=== PATIENT | female | born 1965 | race Caucasian/White ===

== ENCOUNTER 2021-05-03 15:19 | Outpatient (CLI) | payer MEDICARE, MEDICAID, SELFPAY ==
[2021-05-03 15:35] LABS: Basophils Percent Auto 0.4 % (0.2-1.2); Eosinophils Absolute Auto 0.1 K/mm3 (0-0.3); Hematocrit 47.8 % (37.0-47.0); Immature Granulocyte Absolute 0.02 K/mm3 (0.00-0.031); Immature Granulocyte Percent A 0.2 % (0-0.5); Immature Platelet Fraction Pct 3.8 % (0.9-11.2); Lymphocytes Absolute Auto 3.79 K/mm3 (0.9-3.2); Lymphocytes Percent Auto 47.1 % (18.3-44.2); Mean Corpuscular HGB Conc 33.5 g/dl (32-36); Mean Corpuscular Hemoglobin 31.3 pg (26-34); Mean Corpuscular Volume 93.5 fl (80-100); Monocytes Absolute Auto 0.4 K/mm3 (0.1-0.6); Neutrophils Absolute Auto 3.7 K/mm3 (1.3-6.7); Neutrophils Percent Auto 46.3 % (45.5-73.1); Platelet Count Result 70 k/mm3 (150-375); Red Blood Count 5.11 M/mm3 (4.2-5.4); Red Cell Distribution Width 11.8 % (11.5-14.5); White Blood Count 8.1 K/mm3 (4.5-10.0)
[2021-05-03 15:36] LABS: Blood Urea Nitrogen 7 mg/dL (8-26); Carbon Dioxide 27 mmol/L (22-30); Chloride 103 mmol/L (98-109); Estimated Glomerular Filt Rate > 60; Glucose 112 mg/dL (70-105); Potassium 3.9 mmol/L (3.5-4.9); Sodium 142 mmol/L (138-146)
[2021-05-03 16:22] LABS: Alanine Aminotransferase 25 U/L (4-35); Alkaline Phosphatase 83 U/L (38-126); Anion Gap 11 mmol/L (8-16); Aspartate Amino Transferase 38 U/L (14-36); Bilirubin,Total 0.3 mg/dL (0.2-1.3); Blood Urea Nitrogen 8 mg/dL (7-17); Calcium 9.8 mg/dL (8.4-10.2); Carbon Dioxide 26 mmol/L (22-30); Chloride 104 mmol/L (98-107); Estimated Glomerular Filt Rate > 60; Glucose 119 mg/dL (65-110); Sodium 141 mmol/L (137-145)
== END 2021-05-03 15:20 | disposition home or self-care (01) ==
LOC: ANHLAB 15:21
PROVIDERS: Visit Provider Internal Medicine Hematology & Oncology
DX: D69.59 Other secondary thrombocytopenia (principal)
CPT/HCPCS: 36415; 80053; 85025; 85055

== ENCOUNTER 2021-05-31 10:41 | Outpatient (CLI) | payer MEDICARE, MEDICAID, SELFPAY ==
--- NOTE | ~2021-05-31 | MR_ITS ---
EXAMINATION: MR lumbar spine wo con DATE: 05/31/2021 11:24 INDICATION: Lumbar radiculopathy. TECHNIQUE: Magnetic resonance imaging (MRI) of the lumbar spine was performed without intravenous con trast. Sequences included sagittal T2-weighted FSE, sagittal T2-weighted FS FSE, sagittal T1-weighted FSE, and axial T2-weighted FSE. COMPARISON: None FINDINGS: There is 6 degrees dextrocurvature of thoracolumbar spine. Vertebral body heights and inter vertebral disc heights are normal. The distal spinal cord signal intensity is normal. The conus medul fidencio is at L1. The following disc levels are specifically discussed: L1-L2: The disc does not extend beyond the endplate margin. There is mild bilateral facet joint osteo arthritis. There is no neural foraminal stenosis. There is no central canal stenosis. L2-L3: There is a left foraminal protrusion. There is mild bilateral facet joint osteoarthritis. Ther e is mild left neural foraminal stenosis. There is no central canal stenosis. L3-L4: The disc does not extend beyond the endplate margin. There is severe bilateral facet joint ost eoarthritis. There is mild left neural foraminal stenosis. There is no central canal stenosis. L4-L5: The disc does not extend beyond the endplate margin. There is severe bilateral facet joint ost eoarthritis. There is mild right neural foraminal stenosis. There is no central canal stenosis. L5-S1: The disc does not extend beyond the endplate margin. There is severe bilateral facet joint ost eoarthritis. There is mild bilateral neural foraminal stenosis. There is no central canal stenosis. IMPRESSION: 1. Mild lumbar spondylosis. Reviewed, dictated and finalized at location A. IMPRESSION: 1. Mild lumbar spondylosis.
== END 2021-05-31 10:42 | disposition home or self-care (01) ==
PROVIDERS: Visit Provider Physical Medicine & Rehabilitation Pain Medicine
DX: M47.27 Other spondylosis with radiculopathy, lumbosacral region (principal); M48.07 Spinal stenosis, lumbosacral region
CPT/HCPCS: 72148

== ENCOUNTER 2022-12-23 12:46 | Outpatient (CLI) | payer MEDICARE, MEDICAID, SELFPAY ==
[2022-12-23 13:11] LABS: Hematocrit 38.2 % (37.0-47.0); Hemoglobin 13.3 g/dL (12.0-15.0); Immature Platelet Fraction Pct 4.7 % (0.9-11.2); Mean Corpuscular HGB Conc 34.8 g/dl (32-36); Mean Corpuscular Hemoglobin 35.1 pg (26-34); Mean Corpuscular Volume 100.8 fl (80-100); Mean Platelet Volume 9.6 fl (7.4-10.4); Platelet Count Result 16 k/mm3 (150-375); Red Blood Count 3.79 M/mm3 (4.2-5.4); Red Cell Distribution Width 13.3 % (11.5-14.5); White Blood Count 5.1 K/mm3 (4.5-10.0)
[2022-12-28 22:51] LABS: Platelet Antibody, Direct NEGATIVE (NEGATIVE)
== END 2022-12-23 12:47 | disposition home or self-care (01) ==
LOC: ANHLAB 12:53
PROVIDERS: Visit Provider Internal Medicine Hematology & Oncology
DX: D69.59 Other secondary thrombocytopenia (principal)
CPT/HCPCS: 36415; 85027; 85055; 86023

== ENCOUNTER 2023-01-03 10:55 | Outpatient (CLI) | payer MEDICARE, MEDICAID, SELFPAY ==
[2023-01-03 11:23] LABS: Hematocrit 41.7 % (37.0-47.0); Immature Platelet Fraction Pct 4.4 % (0.9-11.2); Mean Corpuscular HGB Conc 33.6 g/dl (32-36); Mean Corpuscular Hemoglobin 34.7 pg (26-34); Mean Corpuscular Volume 103.2 fl (80-100); Mean Platelet Volume 11.1 fl (7.4-10.4); Red Blood Count 4.04 M/mm3 (4.2-5.4); Red Cell Distribution Width 13.7 % (11.5-14.5); White Blood Count 9.1 K/mm3 (4.5-10.0)
[2023-01-03 11:31] LABS: Platelet Count Result 23 k/mm3 (150-375)
== END 2023-01-03 10:56 | disposition home or self-care (01) ==
LOC: ANHLAB 10:57
PROVIDERS: Visit Provider Internal Medicine Hematology & Oncology
DX: D69.59 Other secondary thrombocytopenia (principal)
CPT/HCPCS: 36415; 85027; 85055

== ENCOUNTER 2023-01-10 12:53 | Outpatient (CLI) | payer MEDICARE, MEDICAID, SELFPAY ==
[2023-01-10 13:19] LABS: Hematocrit 38.2 % (37.0-47.0); Immature Platelet Fraction Pct 3.1 % (0.9-11.2); Mean Corpuscular Hemoglobin 35.2 pg (26-34); Mean Corpuscular Volume 103.5 fl (80-100); Mean Platelet Volume 9.7 fl (7.4-10.4); Platelet Count Result 49 k/mm3 (150-375); Red Blood Count 3.69 M/mm3 (4.2-5.4); White Blood Count 4.5 K/mm3 (4.5-10.0)
== END 2023-01-10 12:54 | disposition home or self-care (01) ==
LOC: ANHLAB 12:57
PROVIDERS: Visit Provider Internal Medicine Hematology & Oncology
DX: D69.59 Other secondary thrombocytopenia (principal)
CPT/HCPCS: 36415; 85027; 85055

== ENCOUNTER 2023-01-27 11:36 | Outpatient (CLI) | payer MEDICARE, MEDICAID, SELFPAY ==
[2023-01-27 11:48] LABS: Hematocrit 38.1 % (37.0-47.0); Hemoglobin 12.9 g/dL (12.0-15.0); Mean Corpuscular HGB Conc 33.9 g/dl (32-36); Mean Corpuscular Hemoglobin 34.6 pg (26-34); Mean Corpuscular Volume 102.1 fl (80-100); Mean Platelet Volume 9.1 fl (7.4-10.4); Platelet Count Result 96 k/mm3 (150-375); Red Blood Count 3.73 M/mm3 (4.2-5.4); Red Cell Distribution Width 12.3 % (11.5-14.5); White Blood Count 6.1 K/mm3 (4.5-10.0)
== END 2023-01-27 11:37 | disposition home or self-care (01) ==
PROVIDERS: Visit Provider Internal Medicine Hematology & Oncology
DX: D69.59 Other secondary thrombocytopenia (principal)
CPT/HCPCS: 36415; 85027

== ENCOUNTER 2023-02-01 01:06 | Day surgery (SDC) | payer MEDICARE, MEDICAID, SELFPAY ==
[2023-01-31 14:05] VITALS: BMI 36.5
[2023-02-01] VITALS (7 sets, daily range): BP systolic 113–139; BP diastolic 72–80; PULSE 79–108; RESP 18; TEMP 36.8; O2SAT 96–99; BMI 36.3
--- NOTE | ~2023-02-01 | BM_ITS ---
EXAMINATION: CCL bone marrow asp w bx diag DATE: 02/01/2023 10:20 INDICATION: Thrombocytopenia. TECHNIQUE: A time-out was performed to verify the patient's name, date of , and procedure to b e performed. The procedure including the risks, benefits, and alternatives was discussed with the pat ient. Risks discussed included bleeding and infection. The patient understood the risks and agreed to proceed. The skin overlying the left ilium was prepped and draped in usual sterile fashion. Anesth etic was administered with 1% lidocaine subcutaneously. Moderate sedation was achieved with 1 mg Vers ed IV and 50 mg fentanyl IV. An 11 gauge needle was inserted into the ilium with fluoroscopic guidan ce. Bone marrow was aspirated. An 8 gauge needle was then inserted into the ilium with fluoroscopic g uidance. A core bone marrow biopsy was obtained. There were no immediate complications. Fluoroscopy e xposure time was 0.0 minutes. The total number of images was 10. FINDINGS: Real-time fluoroscopy demonstrates a marker overlying the left posterior superior iliac spi ne. IMPRESSION: 1. Fluoro-guided bone marrow aspiration. 2. Fluoro-guided bone marrow core biopsy. Reviewed, dictated and finalized at location A. TRIAGE
[2023-02-01 07:56] LABS: Hematocrit 41.8 % (37.0-47.0); Hemoglobin 14.2 g/dL (12.0-15.0); Mean Corpuscular Hemoglobin 34.2 pg (26-34); Mean Corpuscular Volume 100.7 fl (80-100); Mean Platelet Volume 9.8 fl (7.4-10.4); Platelet Count Result 79 k/mm3 (150-375); Red Blood Count 4.15 M/mm3 (4.2-5.4); Red Cell Distribution Width 12.4 % (11.5-14.5); White Blood Count 5.2 K/mm3 (4.5-10.0)
[2023-02-01 08:05] LABS: INR 0.9; Prothrombin Time 12.3 Seconds (11.1-14.7)
[2023-02-01 08:13] LABS: Band Neutrophils Percent 8 % (0-6); Neutrophils Absolute Manual 3.53 K/mm3 (1.7-7.2); Neutrophils Percent Manual 60 % (46-73); Total Cells Counted 100
[2023-02-01 08:14] LABS: Eosinophils Absolute Manual 0.05 K/mm3 (0.02-0.5); Eosinophils Percent Manual 1 % (0-4); Lymphocytes Absolute Manual 1.19 K/mm3 (1.1-4.5); Lymphocytes Percent Manual 23 % (18-44); Monocytes Absolute Manual 0.41 K/mm3 (0.1-0.90); Monocytes Percent Manual 8 % (3-9); Platelet Estimate Decreased (Adequate)
[2023-02-01 08:15] LABS: Hypochromasia 1+ (NORMAL); Poikilocytosis 1+ (NORMAL); Schistocytes None Seen (NORMAL)
--- NOTE | 2023-02-01 08:57 | WPDMODSED ---
Moderate Sedation Note-Pt Data Patient Data Diagnosis: Thrombocytopenia. Present Complaint: Thrombocytopenia. Procedure to be performed/Plan: Fluoro-guided bone marrow biopsy of ilium. Allergies Allergy/AdvReac Type Severity Reaction Status Date / Time atorvastatin Allergy Unknown Rash Verified 01/31/23 13:43 ibuprofen Allergy Unknown unknown Verified 01/31/23 13:43 Home Medications Medication Instructions Recorded Confirmed Type multivitamin (Daily Multi-Vitamin 1 tablet PO DAILY 07/16/20 02/01/23 History tablet) blood sugar diagnostic (StaaffTouch #100 ea 11/11/20 01/18/21 Rx Ultra Test strips) blood-glucose meter (StaaffTouch #1 ea 11/11/20 01/18/21 Rx Ultra2 Meter kit) lancets ([employer] UltraSoft #100 ea 11/11/20 01/18/21 Rx Lancets) albuterol sulfate 90 mcg/actuation 2 puff inhalation Q6H PRN 01/31/23 01/31/23 History aerosol inhaler Shortness Of Breath Or Wheezing ascorbic acid (vitamin C) 500 mg 500 mg PO DAILY 01/31/23 02/01/23 History tablet bacitracin 500 unit/gram topical 1 applic topical TID PRN Pain 01/31/23 01/31/23 History ointment cholecalciferol (vitamin D3) 125 125 mcg PO DAILY 01/31/23 02/01/23 History mcg (5,000 unit) tablet (Vitamin D3) cyanocobalamin (vitamin B-12) 500 1,000 mcg PO DAILY 01/31/23 02/01/23 History mcg tablet cyclobenzaprine 5 mg tablet 5 mg PO DAILY PRN Pain 01/31/23 01/31/23 History diclofenac sodium 1 % topical gel 1 ea topical BID PRN Pain 01/31/23 01/31/23 History (Voltaren Arthritis Pain) diclofenac sodium 100 mg 100 mg PO DAILY PRN Pain 01/31/23 01/31/23 History tablet,extended release 24 hr ferrous sulfate 27 mg iron tablet 27 mg PO DAILY 01/31/23 02/01/23 History fluticasone propionate 50 1 spray intranasal DAILY PRN 01/31/23 02/01/23 History mcg/actuation nasal Congestion spray,suspension (Allergy Relief (fluticasone)) folic acid 1 mg tablet 1 mg PO DAILY 01/31/23 02/01/23 History hydrocodone 5 mg-acetaminophen 325 1 tablet PO Q4H PRN Pain 01/31/23 01/31/23 History mg tablet krill oil-hyaluronic 1 cap PO DAILY 01/31/23 02/01/23 History acid-astaxanthin 353 mg capsule lidocaine 5 % topical ointment 1 applic topical DAILY 01/31/23 02/01/23 History omeprazole 20 mg capsule,delayed 20 mg PO DAILY 01/31/23 02/01/23 History release ondansetron HCl 4 mg tablet 4 mg PO Q8H PRN Nausea 01/31/23 02/01/23 History phentermine 11.25 mg-topiramate ER 1 cap PO DAILY 01/31/23 01/31/23 History 69 mg capsule,ext.[id number] mphas semaglutide 0.25 mg or 0.5 mg (2 2 mg subcut WEEKLY 01/31/23 01/31/23 History mg/3 mL) subcutaneous pen injector (Ozempic) simvastatin 20 mg tablet 20 mg PO DAILY 01/31/23 01/31/23 History Sedation/Anesthesia: No previous sedation/anesthesia problems (including family history). [facility] Past Medical History Medical History Arthritis Right knee DJD Family History Family History Other Cerebrovascular accident Depression Diabetes mellitus Family history of arthritis Family history of blood dyscrasia Family history of cardiovascular disease Family history of mental disorder Social History Social History Smoking packs per day: 1 Smoking cigarettes per day: 20.0 Smoking status: Current every day smoker Tobacco type: cigarettes Additional smoking assessment comments: 16 cigarettes per day Alcohol intake: current Drinks per week: 30 Substance use: never Substance use type: does not use Living arrangements: alone Occupation/Education: unemployed Gender identity (if verbalized by the patient): Female Spiritual care concerns: No Mod Sed Physical Exam Physical Exam Pre Procedural Exam: Normal: Lungs, Heart Rate and Heart Rhythm and Variation: Appearance (Obese) and Abdomen (Mild left ab
== END 2023-02-01 10:47 | disposition home or self-care (01) ==
PROVIDERS: PCP Family Medicine; Referring Provider Internal Medicine Hematology & Oncology; Visit Provider Radiology Diagnostic Radiology
DX: D69.6 Thrombocytopenia, unspecified (principal); Z79.51 Long term (current) use of inhaled steroids; Z79.85 Long-term (current) use of injectable non-insulin antidiabetic drugs; F17.210 Nicotine dependence, cigarettes, uncomplicated
CPT/HCPCS: 36415; 38222; 85025; 85055; 85610; 88184; 88185; 88305; 88311; 88313; 88342; 88364; 88365; J1642; J2250; J3010; J7040

== ENCOUNTER 2023-05-09 10:06 | Outpatient (CLI) | payer MEDICARE, MEDICAID, SELFPAY ==
[2023-05-09 10:39] LABS: Basophils Percent Auto 0.6 % (0.2-1.2); Eosinophils Absolute Auto 0.3 K/mm3 (0-0.3); Eosinophils Percent Auto 5.6 % (0-4.4); Hematocrit 40.1 % (37.0-47.0); Hemoglobin 13.7 g/dL (12.0-15.0); Immature Granulocyte Absolute 0.01 K/mm3 (0.00-0.031); Immature Granulocyte Percent A 0.2 % (0-0.5); Immature Platelet Fraction Pct 3.3 % (0.9-11.2); Lymphocytes Absolute Auto 2.26 K/mm3 (0.9-3.2); Mean Corpuscular HGB Conc 34.2 g/dl (32-36); Mean Corpuscular Hemoglobin 34.8 pg (26-34); Mean Corpuscular Volume 101.8 fl (80-100); Mean Platelet Volume 10.3 fl (7.4-10.4); Monocytes Absolute Auto 0.4 K/mm3 (0.1-0.6); Monocytes Percent Auto 7.8 % (2.6-8.5); Neutrophils Absolute Auto 2.2 K/mm3 (1.3-6.7); Neutrophils Percent Auto 41.8 % (45.5-73.1); Red Blood Count 3.94 M/mm3 (4.2-5.4); Red Cell Distribution Width 13.8 % (11.5-14.5); White Blood Count 5.1 K/mm3 (4.5-10.0)
[2023-05-09 11:14] LABS: Platelet Count Result 22 k/mm3 (150-375)
== END 2023-05-09 10:07 | disposition home or self-care (01) ==
LOC: ANHLAB 10:09
PROVIDERS: PCP Nurse Practitioner Family; Visit Provider Internal Medicine Hematology & Oncology
DX: D69.59 Other secondary thrombocytopenia (principal)
CPT/HCPCS: 36415; 85025; 85055

== ENCOUNTER 2023-06-12 10:24 | Outpatient (CLI) | payer MEDICARE, MEDICAID, SELFPAY ==
[2023-06-12 10:39] LABS: Basophils Absolute Auto 0.1 K/mm3 (0.0-0.1); Eosinophils Absolute Auto 0.4 K/mm3 (0-0.3); Eosinophils Percent Auto 7.8 % (0-4.4); Hematocrit 40.8 % (37.0-47.0); Immature Granulocyte Absolute 0.01 K/mm3 (0.00-0.031); Immature Granulocyte Percent A 0.2 % (0-0.5); Lymphocytes Absolute Auto 1.93 K/mm3 (0.9-3.2); Lymphocytes Percent Auto 39.5 % (18.3-44.2); Mean Corpuscular HGB Conc 34.3 g/dl (32-36); Mean Platelet Volume 9.4 fl (7.4-10.4); Monocytes Absolute Auto 0.4 K/mm3 (0.1-0.6); Monocytes Percent Auto 8.4 % (2.6-8.5); Neutrophils Absolute Auto 2.1 K/mm3 (1.3-6.7); Neutrophils Percent Auto 43.1 % (45.5-73.1); Platelet Count Result 179 k/mm3 (150-375); Red Cell Distribution Width 12.9 % (11.5-14.5); White Blood Count 4.9 K/mm3 (4.5-10.0)
== END 2023-06-12 10:25 | disposition home or self-care (01) ==
LOC: ANHLAB 10:26
PROVIDERS: PCP Nurse Practitioner Family; Visit Provider Internal Medicine Hematology & Oncology
DX: D69.59 Other secondary thrombocytopenia (principal)
CPT/HCPCS: 36415; 85025

== ENCOUNTER 2023-07-14 11:34 | Outpatient (CLI) | payer MEDICARE, MEDICAID, SELFPAY ==
[2023-07-14 11:46] LABS: Basophils Percent Auto 0.5 % (0.2-1.2); Eosinophils Absolute Auto 0.2 K/mm3 (0-0.3); Eosinophils Percent Auto 3.9 % (0-4.4); Hematocrit 39.8 % (37.0-47.0); Hemoglobin 13.2 g/dL (12.0-15.0); Immature Granulocyte Absolute 0.01 K/mm3 (0.00-0.031); Immature Granulocyte Percent A 0.2 % (0-0.5); Lymphocytes Absolute Auto 1.72 K/mm3 (0.9-3.2); Mean Corpuscular HGB Conc 33.2 g/dl (32-36); Mean Corpuscular Volume 102.6 fl (80-100); Mean Platelet Volume 9.5 fl (7.4-10.4); Monocytes Absolute Auto 0.4 K/mm3 (0.1-0.6); Monocytes Percent Auto 10.2 % (2.6-8.5); Neutrophils Absolute Auto 1.8 K/mm3 (1.3-6.7); Neutrophils Percent Auto 43.2 % (45.5-73.1); Platelet Count Result 173 k/mm3 (150-375); Red Blood Count 3.88 M/mm3 (4.2-5.4); Red Cell Distribution Width 11.6 % (11.5-14.5); White Blood Count 4.1 K/mm3 (4.5-10.0)
[2023-07-14 11:51] LABS: Blood Urea Nitrogen 11 mg/dL (8-26); Carbon Dioxide 23 mmol/L (22-30); Chloride 104 mmol/L (98-109); Estimated Glomerular Filt Rate > 60; Glucose 105 mg/dL (70-105); Ionized Calcium (POC) 1.06 mmol/L (1.11-1.31); Potassium 5.2 mmol/L (3.5-4.9); Sodium 137 mmol/L (138-146)
[2023-07-14 14:18] LABS: Alanine Aminotransferase 140 U/L (6-35); Albumin Level 4.5 g/dL (3.5-5.1); Alkaline Phosphatase 109 U/L (38-126); Anion Gap 8 mmol/L (4-12); Aspartate Amino Transferase 139 U/L (14-36); Bilirubin,Total 0.5 mg/dL (0.2-1.3); Blood Urea Nitrogen 11 mg/dL (7-17); Calcium 9.6 mg/dL (8.4-10.2); Carbon Dioxide 26 mmol/L (22-30); Chloride 106 mmol/L (98-107); Estimated Glomerular Filt Rate > 60; Glucose 109 mg/dL (65-110); Potassium 4.2 mmol/L (3.4-5.0); Sodium 140 mmol/L (137-145)
== END 2023-07-14 11:35 | disposition home or self-care (01) ==
LOC: ANHLAB 11:36
PROVIDERS: PCP Nurse Practitioner Family; Visit Provider Internal Medicine Hematology & Oncology
DX: D69.59 Other secondary thrombocytopenia (principal)
CPT/HCPCS: 36415; 80047; 80053; 85025

== ENCOUNTER 2023-12-01 09:36 | Outpatient (CLI) | payer MEDICARE, MEDICAID, SELFPAY ==
[2023-12-01 09:50] LABS: Basophils Percent Auto 0.1 % (0.2-1.2); Eosinophils Percent Auto 0.1 % (0-4.4); Hematocrit 41.7 % (37.0-47.0); Hemoglobin 14.1 g/dL (12.0-15.0); Immature Granulocyte Absolute 0.15 K/mm3 (0.00-0.031); Immature Granulocyte Percent A 1.8 % (0-0.5); Lymphocytes Absolute Auto 1.21 K/mm3 (0.9-3.2); Lymphocytes Percent Auto 14.8 % (18.3-44.2); Mean Corpuscular HGB Conc 33.8 g/dl (32-36); Mean Corpuscular Hemoglobin 32.9 pg (26-34); Mean Corpuscular Volume 97.2 fl (80-100); Monocytes Absolute Auto 0.4 K/mm3 (0.1-0.6); Monocytes Percent Auto 5.1 % (2.6-8.5); Neutrophils Absolute Auto 6.4 K/mm3 (1.3-6.7); Neutrophils Percent Auto 78.1 % (45.5-73.1); Platelet Count Result 188 k/mm3 (150-375); Red Blood Count 4.29 M/mm3 (4.2-5.4); Red Cell Distribution Width 12.5 % (11.5-14.5); White Blood Count 8.2 K/mm3 (4.5-10.0)
[2023-12-01 10:02] LABS: Blood Urea Nitrogen 23 mg/dL (8-26); Carbon Dioxide 26 mmol/L (22-30); Chloride 100 mmol/L (98-109); Estimated Glomerular Filt Rate > 60; Glucose 107 mg/dL (70-105); Ionized Calcium (POC) 1.16 mmol/L (1.11-1.31); Potassium 4.2 mmol/L (3.5-4.9); Sodium 138 mmol/L (138-146)
[2023-12-01 11:31] LABS: Alanine Aminotransferase 105 U/L (6-35); Albumin Level 4.1 g/dL (3.5-5.1); Alkaline Phosphatase 84 U/L (38-126); Anion Gap 11 mmol/L (4-12); Aspartate Amino Transferase 70 U/L (14-36); Bilirubin,Total 0.6 mg/dL (0.2-1.3); Blood Urea Nitrogen 25 mg/dL (7-17); Calcium 9.3 mg/dL (8.4-10.2); Carbon Dioxide 27 mmol/L (22-30); Chloride 98 mmol/L (98-107); Estimated Glomerular Filt Rate > 60; Glucose 106 mg/dL (65-110); Potassium 4.2 mmol/L (3.4-5.0); Sodium 136 mmol/L (137-145)
[2023-12-06 23:03] LABS: Platelet Antibody, Direct NEGATIVE (NEGATIVE)
== END 2023-12-01 09:37 | disposition home or self-care (01) ==
PROVIDERS: PCP Nurse Practitioner Family; Visit Provider Internal Medicine Hematology & Oncology
DX: D69.59 Other secondary thrombocytopenia (principal)
CPT/HCPCS: 36415; 80047; 80053; 85025; 86023

== ENCOUNTER 2024-04-05 11:27 | Outpatient (CLI) | payer MEDICAID, MEDICARE, SELFPAY ==
[2024-04-05 11:38] LABS: Basophils Absolute Auto 0.1 K/mm3 (0.0-0.1); Basophils Percent Auto 0.9 % (0.2-1.2); Eosinophils Absolute Auto 0.1 K/mm3 (0-0.3); Eosinophils Percent Auto 1.7 % (0-4.4); Hematocrit 42.1 % (37.0-47.0); Hemoglobin 14.2 g/dL (12.0-15.0); Immature Granulocyte Absolute 0.02 K/mm3 (0.00-0.031); Immature Granulocyte Percent A 0.4 % (0-0.5); Lymphocytes Absolute Auto 1.95 K/mm3 (0.9-3.2); Lymphocytes Percent Auto 36.5 % (18.3-44.2); Mean Corpuscular HGB Conc 33.7 g/dl (32-36); Mean Corpuscular Hemoglobin 33.1 pg (26-34); Mean Corpuscular Volume 98.1 fl (80-100); Mean Platelet Volume 9.5 fl (7.4-10.4); Monocytes Absolute Auto 0.5 K/mm3 (0.1-0.6); Monocytes Percent Auto 9.9 % (2.6-8.5); Neutrophils Absolute Auto 2.7 K/mm3 (1.3-6.7); Neutrophils Percent Auto 50.6 % (45.5-73.1); Platelet Count Result 199 k/mm3 (150-375); Red Blood Count 4.29 M/mm3 (4.2-5.4); White Blood Count 5.3 K/mm3 (4.5-10.0)
[2024-04-05 11:44] LABS: Blood Urea Nitrogen 7 mg/dL (8-26); Carbon Dioxide 24 mmol/L (22-30); Chloride 104 mmol/L (98-109); Estimated Glomerular Filt Rate > 60; Glucose 96 mg/dL (70-105); Ionized Calcium (POC) 1.14 mmol/L (1.11-1.31); Potassium 4.4 mmol/L (3.5-4.9); Sodium 141 mmol/L (138-146)
[2024-04-05 12:47] LABS: Alanine Aminotransferase 138 U/L (6-35); Albumin Level 4.3 g/dL (3.5-5.1); Alkaline Phosphatase 108 U/L (38-126); Anion Gap 10 mmol/L (4-12); Aspartate Amino Transferase 153 U/L (14-36); Bilirubin,Total 0.6 mg/dL (0.2-1.3); Blood Urea Nitrogen 8 mg/dL (7-17); Calcium 8.9 mg/dL (8.4-10.2); Carbon Dioxide 26 mmol/L (22-30); Chloride 104 mmol/L (98-107); Estimated Glomerular Filt Rate > 60; Glucose 94 mg/dL (65-110); Potassium 4.4 mmol/L (3.4-5.0); Sodium 140 mmol/L (137-145)
== END 2024-04-05 11:28 | disposition home or self-care (01) ==
LOC: ANHLAB 11:28
PROVIDERS: PCP Nurse Practitioner Family; Visit Provider Internal Medicine Hematology & Oncology
DX: D69.59 Other secondary thrombocytopenia (principal)
CPT/HCPCS: 36415; 80047; 80053; 85025

== ENCOUNTER 2024-05-30 13:32 | Outpatient (CLI) | payer MEDICARE, MEDICAID, SELFPAY ==
[2024-05-30 13:44] LABS: Basophils Percent Auto 0.6 % (0.2-1.2); Eosinophils Absolute Auto 0.1 K/mm3 (0-0.3); Eosinophils Percent Auto 1.4 % (0-4.4); Hematocrit 41.6 % (37.0-47.0); Hemoglobin 14.4 g/dL (12.0-15.0); Immature Granulocyte Absolute 0.01 K/mm3 (0.00-0.031); Immature Granulocyte Percent A 0.2 % (0-0.5); Lymphocytes Absolute Auto 1.66 K/mm3 (0.9-3.2); Mean Corpuscular HGB Conc 34.6 g/dl (32-36); Mean Corpuscular Hemoglobin 33.2 pg (26-34); Mean Corpuscular Volume 95.9 fl (80-100); Mean Platelet Volume 9.6 fl (7.4-10.4); Monocytes Absolute Auto 0.5 K/mm3 (0.1-0.6); Monocytes Percent Auto 10.3 % (2.6-8.5); Neutrophils Absolute Auto 2.7 K/mm3 (1.3-6.7); Neutrophils Percent Auto 54.5 % (45.5-73.1); Platelet Count Result 175 k/mm3 (150-375); Red Blood Count 4.34 M/mm3 (4.2-5.4); Red Cell Distribution Width 11.9 % (11.5-14.5)
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
--- OUTSIDE RECORDS SUMMARY | 2024-05-30 15:15 | XMS_ITS | Encounter Summary ---
Author Organization [facility] Address [address] [place] [address] Care Team Providers Care Bending Frame Operator Name Role Phone Unavailable Primary Care Provider Unavailabl e Encounter Details Date Type Department Care Team (Late st Contact Info) Description 02/01/2023 Lab Requisition [facility] - Pathology Lab [address] [place] [address] Khurram Bailey MD [address] [facility] [address] [place] [id number] Other secondary thrombocytopenia Social History Tobacco Use Types Packs/Day Years Used Date Smoking Tobacco: Never Assessed Sex and Gender Information Value Date Recorded Sex Assigned at Unknown 02/01/2023 3:21 PM OCCUPATIONAL THERAPIST Gender Identity Female 02/01/2023 3:21 PM OCCUPATIONAL THERAPIST Sexual Orientation Don't know 02/01/2023 3: 21 PM OCCUPATIONAL THERAPIST documented as of this encounter Plan of Treatment Not on file documented as of this encounter Procedures Procedure Name Priority Date/Time Associated Diagnosis Comments FLOW CYTOMETRY BONE MARROW Routine 02/01/2023 9:20 AM OCCUPATIONAL THERAPIST Other secondary thrombocytopenia documented in this encounter Results * FLOW CYTOMETRY BONE MARROW (02/01/2023 9:20 AM OCCUPATIONAL THERAPIST) Case Report Flow Cytometry Case: [id number] Authorizing Provider: Jonny Bailey MD Collected: 02/01/2023 09:20 AM Ordering Location: [facility] Care Pathology Lab Received: 02/01/2023 03:30 PM Pathologist: Clementina Crump MD Specimen: Bone Marrow 02/02/2023 11:46 AM OCCUPATIONAL THERAPIST [facility] PATH[facility] Final Diagnosis Bone marrow, flow cytometry: - No clonal B-cell or increased blast population detected 02/02/2023 11:46 AM OCCUPATIONAL THERAPIST [facility] Flow Cytometry Interpretation Viability: 88% B-cells: polytypic, kappa:lambda ratio 1.3:1 T-cells: not increased Blasts: not increased, ~3% represent CD34+ myeloblasts, ~3% represent CD19+/CD10+ hematogones. A bone marrow aspirate smear prepared from the flow cytometry specimen has been reviewed for quality assurance coach purposes. 02/02/2023 11:46 AM [facility] PATH[facility] Flow Cytometry Results Differential Result Comment Flow Cell Count /uL 45,900 Total Viability % 88.0 Lymphocytes % 28 Dim CD45 Region % 10 Monocytes % 10 Granulocytes % 52 02/02/2023 11:46 AM [facility] Reason for test Other secondary thrombocytopenia 287.49 02/02/2023 11:46 AM [facility] Client Specimen ID # [id number] 02/02/2023 11:46 AM [facility] Number of markers 10 were performed. A-2 Flow CD10 A-3 Flow CD13 A-5 Flow CD20 A-1 Flow CD5 A-4 Flow CD19 A-6 Flow CD33 A-7 Flow CD34 A-8 Flow CD45 A-9 [place]+CD19+ A-10 Lambda+CD19+ 02/02/2023 11:46 AM [facility] Pathologist Location at [facility] 02/02/2023 11:46 AM [facility] Disclaimer Test performed at [facility], [address] [place] [address], [id number]. *The established laboratory minimum viability is 70%. Values below the minimum may result in the failure to find an abnormal population of cells. This test was developed and its performance characteristics determined by the Flow Cytometry Laboratory. It has not been cleared by the [place] Food and Drug Administration (FDA). The FDA has determined that such clearance or approval is not necessary. This test is used for clinical purposes. It should not be regarded as investigational or for research. This laboratory is regulated under the Clinical Laboratory Improvement Amendments of 1998 (CLIA) as a qualified to perform high complexity clinical testing. 02/02/2023 11:46 AM [facility] Embedded Images 11:46 AM [facility] Pathology/Cytolo gy BONE MARROW SPECIMEN / Unknown 02/01/2023 9:20 AM OCCUPATIONAL THERAPIST 02/01/2023 3:30 PM OCCUPATIONAL THERAPIST Khurram Bailey MD LAB - PATHO LOGY/CYTOLOGY ORDERABLES Performing Organization Address City/State/[facility] Co de Phone Number [facility] PATHOLOGY LAB [address] [phone] documented in this encounter Visit Diagnoses Diagnosis Other secondary thrombocytopenia documented in this encounter
--- OUTSIDE RECORDS SUMMARY | 2024-05-30 15:15 | XMS_ITS | Referral Summary ---
Author Organization [facility] Address [address] [place] [address] Care Team Providers Care Anthropological Linguist Name Role Phone Unavailable Primary Care Provider Unavailabl e Source Comments [facility],non-owned Affiliates and Associated Physician Practices is amultiple site organization consisting of ambulatory clinics and hospital sitesin [place], [place], [place] and [place]. This disclosure is being madepursuant to the Care Everywhere program and may not contain all information available regarding this patient. Last updated 17.[facility] [employer] Social History Tobacco Use Types Packs/Day Years Used Date Smoking Tobacco: Never Assessed Sex and Gender Information Value Date Recorded Sex Assigned at Unknown 02/01/2023 3:21 PM SPECIAL EVENTS COORDINATOR Gender Identity Female 02/01/2023 3:21 PM SPECIAL EVENTS COORDINATOR Sexual Orientation Don't know 02/01/2023 3: 21 PM SPECIAL EVENTS COORDINATOR Plan of Treatment Not on file
--- OUTSIDE RECORDS SUMMARY | 2024-05-30 15:15 | XMS_ITS | Continuity of Care Document ---
Author Organization [facility] Address [address] [place] [address] [place] [address] Phone Care Team Providers Care Utilization Supervisor Name Role Phone Jarvis Ball MD Unavailable Unavailable Allergies, Adverse Reactions, Alerts Substance Reaction Status Criticality No Known Allergies Active No Inform ation Medications Medication Instructions Dosage Effective Dates (start - stop) Status Comments Xanax 1 mg tablet take 1 tablet (1MG) by oral route 2 times every day 1 MG - Active avoid driving or operate machines Rome 7.5 mg-325 mg tablet take 1 tablet by oral route 3 times every day as needed for pain 1 tablet - Active avoid driving or operate machines Adderall 20 mg tablet take 1 tablet (20MG) by oral route every day before breakfast 20 MG - Active Geodon 20 mg capsule take 1 capsule (20MG) by oral route 2 times every day with food 20 MG - Active avoid driving or operate machines Zocor 40 mg tablet take 1 tablet (40MG) by oral route every day in the evening 40 MG - Active metformin ER 750 mg tablet,extended release 24 hr take 1 tablet (750MG) by oral route every day with the evening meal 750 MG - Active Niaspan Extended-Release 1,000 mg tablet,extended release take 1 Tablet (1000MG) by oral route every bedtime at bedtime after a low-fat snack 1000 MG - Active Zoloft 100 mg tablet take 2 Tablet (200MG) by oral route every day 200 MG - Active omeprazole 20 mg capsule,delayed release take 1 capsule (20MG) by oral route every day before a meal 20 MG Dec-30-2013 - Active Procedures Procedure Date OFFICE/OUTPATIENT VISIT, EST OFFICE/OUTPATIENT VISIT, EST OFFICE/OUTPATIENT VISIT, EST OFFICE/OUTPATIENT VISIT, EST OFFICE/OUTPATIENT VISIT, EST OFFICE/OUTPATIENT VISIT, EST OFFICE/OUTPATIENT VISIT, EST OFFICE/OUTPATIENT VISIT, EST OFFICE/OUTPATIENT VISIT, EST OFFICE/OUTPATIENT VISIT, EST OFFICE/OUTPATIENT VISIT, EST OFFICE/OUTPATIENT VISIT, EST OFFICE/OUTPATIENT VISIT, EST OFFICE/OUTPATIENT VISIT, EST OFFICE/OUTPATIENT VISIT, EST OFFICE/OUTPATIENT VISIT, EST OFFICE/OUTPATIENT VISIT, EST OFFICE/OUTPATIENT VISIT, EST OFFICE/OUTPATIENT VISIT, EST OFFICE/OUTPATIENT VISIT, EST OFFICE/OUTPATIENT VISIT, EST OFFICE/OUTPATIENT VISIT, EST OFFICE/OUTPATIENT VISIT, EST Advance Directives Directive Yes / No Effective Date File Name No Information Encounters Encounter Description Practice Location Reason(s) For Visit Diagnoses Date Provider Providers Copied on Encounter [facility], [address], [address], tel:[phone] [facility] Medicine No Information 5 Quinn Chisholm [address], [address] , [place]. tel:[phone] Referring Provider: Park Hunt [address], [address]. tel:[phone] OFFICE/OUTPA TIENT VISIT, [facility], [address], [address], tel:[phone] [facility] Medicine ADD (chief complaint)k nee pain (chief complaint)a nxiety (chief complaint) Dietary surveillance and counselingCHRONIC PAIN NEC 4 Quinn Chisholm [address], [place], [place], [address] , [place]. tel:[phone] Referring Provider: Park Hunt [address], [place], [place], [address]. tel:[phone] OFFICE/OUTPA TIENT VISIT, [facility], [address], [place], [place], [address], [place] tel:[phone] [facility] GERD (chief complaint)k nee pain (chief complaint)a nxiety (chief complaint)s leep apnea (chief complaint)A DD (chief complaint) Dietary surveillance and counselingSleep ApneaGERDChronic Fatigue SyndromePain in joint involving lower leg 4 Quinn Conley. [address], [place], [place], [address] , [place]. tel:[phone] Referring Provider: Park Hunt [address], [place], [address]. tel:[phone] OFFICE/OUTPA TIENT VISIT, [facility], [address], [place], [place], [address], [place] tel:[phone] [facility] knee pain (chief complaint)a nxiety (chief complaint)A DD (chief complaint) Dietary surveillance and counselingPain in joint involving lower legSleep Apnea 4 Quinn Chisholm [address], [place], [place], [address] , [place]. tel:[phone] Referring Provider: Park Hunt [address], [place], [place], [address]. tel:[phone] OFFICE/OUTPA TIENT VISIT, [facility], [address], [place], [place], [address], [place] tel:[phone] [facility] HLP (chief complaint)a nxiety (chief complaint)s leep apnea (chief complaint)A DD (chief complaint) Dietary surveillance and counselingFatigue / MalaiseOther and unspecified hyperlipidemiaSlee p Apnea 4 Quinn Conley. [address], [place], [place], [address] , [place]. [phone] Referring Provider: Park Hunt [address], [place], [place], [address]. tel:[phone] OFFICE/OUTPA TIENT VISIT, [facility], [address], [place], [place], [address], [place] [phone] [facility] knee pain (chief complaint)a nxiety (chief complaint)A DD (chief complaint) Dietary surveillance and counselingPain in joint involving lower legFatigue / Malaise May- 0 4 Quinn Conley. [address], [place], [place], [address] , [place]. [phone] Referring Provider: Park Hunt [address], [place], [place], [address]. tel:[phone] [facility], [address], [place], [address], [place] tel:[phone] [facility] No Information May-0 4 Quinn Cnoley. [address], [place], [place], [address] , [place]. [phone] Referring Provider: Park Hunt [address], [place], [place], [address]. tel:[phone] OFFICE/OUTPA TIENT VISIT, [facility], [address], [place], [address], [place] [phone] [facility] depression (chief complaint)H LP (chief complaint)K Nee pain (chief complaint)s leep apnea (chief complaint) Dietary surveillance and counselingOther and unspecified hyperlipidemiaPain in joint involving lower legSleep ApneaChronic Fatigue Syndrome Apr- 4 Quinn Conley. [address], [place], [place], [address] , [place]. [phone] Referring Provider: Park Hunt [address], [place], [place], [address]. tel:[phone] OFFICE/OUTPA TIENT VISIT, [facility], [address], [place], [address], [place] tel:[phone] [facility] Knee pain (chief complaint)m etabolic syndrome (chief complaint)a nxiety (chief complaint)H LP (chief complaint) Dietary surveillance and counselingMetaboli c SyndromeOther and unspecified hyperlipidemiaPain in joint involving lower leg 4 Quinn Conley. [address], [place], [place], [address] , [place]. tel:[phone] Referring Provider: Jarvis Ball, [address], [place], [place], [address]. tel:[phone] [facility], [address], [place], [address], [place] tel:[phone] [facility] No Information 4 Quinn Conley. [address], [place], [place], [address] , [place]. tel:[phone] OFFICE/OUTPA TIENT VISIT, [facility], [address], [place], [place], [address], [place] tel:[phone] [facility] HLP (chief complaint)K Nee pain (chief complaint)G ERD (chief complaint) Dietary surveillance and counselingGERDPain in joint involving lower legOther and unspecified hyperlipidemia 3 Quinn Conley. [address], [place], [address] , [place]. tel:[phone] Referring Provider: Jarvis Ball, [address], [place], [place], [address]. tel:[phone] OFFICE/OUTPA TIENT VISIT, [facility], [address], [place], [place], [address], [place] tel:[phone] [facility] HLP (chief complaint)K Nee pain (chief complaint)a nxiety (chief complaint)s leep apnea (chief complaint) Dietary surveillance and counselingPain in joint involving lower legSleep ApneaOther and unspecified hyperlipidemia 3 Quinn Conley. [address], [place], [place], [address] , [place]. tel:[phone] Referring Provider: Park Hunt [address], [place], [place], [address]. tel:[phone] OFFICE/OUTPA TIENT VISIT, [facility], [address], [place], [place], [address], [place] tel:[phone] [facility] sleep apnea (chief complaint)a nxiety (chief complaint)K Nee pain (chief complaint) Dietary surveillance and counselingPain in joint involving lower legSleep ApneaGeneralized anxiety disorder 3 Quinn Conley. [address], [place], [place], [address] , [place]. tel:[phone] Referring Provider: Park Hunt [address], [place], [place], [address]. tel:[phone] OFFICE/OUTPA TIENT VISIT, [facility], [address], [place], [place], [address], [place] tel:[phone] [facility] right knee pain (chief complaint)S leep apnea (chief complaint)a nxiety (chief complaint)w eight gain (chief complaint) Dietary surveillance and counselingAbnormal weight gainSleep ApneaPain in joint involving lower legMetabolic Syndrome 3 Quinn Conley. [address], [place], [place], [address] , [place]. tel:[phone] Referring Provider: Park Hunt [address], [place], [address]. tel:[phone] OFFICE/OUTPA TIENT VISIT, [facility], [address], [place], [place], [address], [place] tel:[phone] [facility] Knee pain (chief complaint)H LP (chief complaint)s leep apnea (chief complaint) Dietary surveillance and counselingSleep ApneaPain in joint involving lower legOther and unspecified hyperlipidemia 3 Quinn Conley. [address], [place], [place], [address] , [place]. tel:[phone] Referring Provider: Jarvis Ball, [address], [place], [place], [address]. tel:[phone] [facility], [address], [place], [place], [address], [place] tel:[phone] [facility] Sleep Apnea 3 Quinn Conley. [address], [place], [place], [address] , [place]. tel:[phone] Referring Provider: Park Hunt [address], [place], [place], [address]. tel:[phone] OFFICE/OUTPA TIENT VISIT, [facility], [address], [place], [place], [address], [place] tel:[phone] [facility] HLP (chief complaint)f atigue (chief complaint)k nee pain (chief complaint) Dietary surveillance and counselingFatigue / MalaiseOther and unspecified hyperlipidemiaSlee p Apnea 3 Quinn Conley. [address], [place], [place], [address] , [place]. tel:[phone] Referring Provider: Park Hunt [address], [place], [place], [address]. tel:[phone] OFFICE/OUTPA TIENT VISIT, [facility], [address], [place], [place], [address], [place] tel:[phone] [facility] fatigue (chief complaint)K Nee pain (chief complaint)H Lp (chief complaint) Dietary surveillance and counselingFatigue / MalaiseOther and unspecified hyperlipidemiaCHRO BHAVYA PAIN NECUnspecified vitamin d deficiency 3 Quinn Conley. [address], [place], [place], [address] , [place]. tel:[phone] Referring Provider: Park Hunt [address], [place], [address]. tel:[phone] OFFICE/OUTPA TIENT VISIT, [facility], [address], [place], [place], [address], [place] tel:[phone] [facility] KNee pain (chief complaint)a nxiety (chief complaint) Pain in joint involving lower legMetabolic SyndromeOther and unspecified hyperlipidemia Jun- 3 Quinn Conley. [address], [place], [place], [address] , [place]. tel:[phone] Referring Provider: Park Hunt [address], [place], [place], [address]. tel:[phone] OFFICE/OUTPA TIENT VISIT, [facility], [address], [place], [place], [address], [place] tel:[phone] [facility] anxiety (chief complaint)k nee pain (chief complaint) Dietary surveillance and counselingPain in joint involving lower legOther and unspecified hyperlipidemia May- 3 Quinn Conley. [address], [place], [place], [address] , [place]. tel:[phone] Referring Provider: Park Hunt [address], [place], [place], [address]. tel:[phone] OFFICE/OUTPA TIENT VISIT, [facility], [address], [place], [address], [place] tel:[phone] [facility] KNee pain (chief complaint)H TN (chief complaint) Dietary surveillance and counselingPain in joint involving lower legHypertension, UnspecifiedHypokal emia Apr- 3 Quinn Conley. [address], [place], [place], [address] , [place]. tel:[phone] Referring Provider: Park Hunt [address], [place], [place], [address]. tel:[phone] OFFICE/OUTPA TIENT VISIT, [facility], [address], [place], [address], [place] tel:[phone] [facility] HLP (chief complaint)k nee pain (chief complaint)A nxiety (chief complaint) Dietary surveillance and counselingMetaboli c SyndromeOther and unspecified hyperlipidemiaPain in joint involving lower leg Fe 3 Quinn Conley. [address], [place], [place], [address] , [place]. [phone] Referring Provider: Jarvis Ball, [address], [place], [place], [address]. tel:[phone] OFFICE/OUTPA TIENT VISIT, [facility], [address], [place], [place], [address], [place] tel:[phone] [facility] KNee pain (chief complaint) Dietary surveillance and counselingPain in joint involving lower leg 3 Quinn Conley. [address], [place], [place], [address] , [place]. tel:[phone] Referring Provider: Jarvis Ball, [address], [place], [place], [address]. tel:[phone] OFFICE/OUTPA TIENT VISIT, [facility], [address], [place], [place], [address], [place] tel:[phone] [facility] knee pain (chief complaint)a nxiety (chief complaint)o beisty (chief complaint) Dietary surveillance and counselingPain in joint involving lower legAbnormal weight gainOther and unspecified hyperlipidemia 2 Quinn Conley. [address], [place], [place], [address] , [place]. tel:[phone] Referring Provider: Park Hunt [address], [place], [place], [address]. tel:[phone] OFFICE/OUTPA TIENT VISIT, [facility], [address], [place], [place], [address], [place] tel:[phone] [facility] knee pain (chief complaint)a nxiety (chief complaint)H LP (chief complaint) Dietary surveillance and counselingOther and unspecified hyperlipidemiaPain in joint involving lower leg 2 Quinn Conley. [address], [place], [address] , [place]. [phone] Referring Provider: Park Hunt [address], [place], [place], [address]. tel:[phone] OFFICE/OUTPA TIENT VISIT, [facility], [address], [place], [place], [address], [place] [phone] [facility] chronic pain (chief complaint)f atigue (chief complaint)m ood change (chief complaint) Dietary surveillance and counselingCHRONIC PAIN NECFatigue / Malaise 2 Quinn Chisholm [address], [place], [place], [address] , [place]. tel:[phone] Referring Provider: Park [address], [place], [place], [address]. tel:[phone] OFFICE/OUTPA TIENT VISIT, [facility], [address], [place], [place], [address], [place] tel:[phone] [facility] anxiety (chief complaint)f atigue (chief complaint) Dietary surveillance and counselingFatigue / MalaiseCHRONIC PAIN NEC 2 Quinn Chisholm [address], [place], [place], [address] , [place]. tel:[phone] Referring Provider: Park Hunt [address], [place], [place], [address]. tel:[phone] Family History Family Member Type Diagnosis Age At Onset Sister Problem (finding) Alive and well Father Problem (finding) Hyperlipidemia Mother Problem (finding) Diabetes mellitus Payers Payer name Insurance type Covered democrat ID Authoriza tion(s) No Information Social History Type Description Quantity Date Captured Comments Sex Female Smoking Status No Information Chief Complaint And Reason For Visit No Information Plan Of Treatment Date Type Action Status Goal Mammogram. Due on 3 due Goal Tobacco cessation counseling completed Goal Tobacco cessation counseling completed Goal Tobacco cessation counseling completed Goal Tobacco cessation counseling completed Goal Tobacco cessation counseling completed Goal Tobacco cessation counseling completed Goal Tobacco cessation counseling completed Goal Tobacco cessation counseling completed Goal Tobacco cessation counseling completed Goal Tobacco cessation counseling completed Goal Tobacco cessation counseling completed Goal Tobacco cessation counseling completed Goal Tobacco cessation counseling completed Goal Tobacco cessation counseling completed Goal Tobacco cessation counseling completed Goal Tobacco cessation counseling completed Goal Tobacco cessation counseling completed Goal Tobacco cessation counseling completed Goal Tobacco cessation counseling completed Referral Ordered: MAMMOGRAM, SCREENING ordered Referral Ordered: Referral: Pulmonary Diseases. Evaluate and treat. ordered Referral Ordered: Referral: Pulmonary Diseases. ordered History Of Present Illness Encounter Date Complaint History Of Prese nt Illness No Information Instructions Date Instruction Additional Infor mation Dietary counseling Related to Di etary surveillance counseling Decrease caloric intake Related to Dietary surveillance counseling Decrease caloric intake Related to Dietary surveillance counseling Dietary counseling Related to Di etary surveillance counseling Dietary counseling Related to Di etary surveillance counseling Decrease caloric intake Related to Dietary surveillance counseling Decrease caloric intake Related to Dietary surveillance counseling Dietary counseling Related to Di etary surveillance counseling Dietary counseling Related to Di etary surveillance counseling Decrease caloric intake Related to Dietary surveillance counseling Dietary counseling Related to Di etary surveillance counseling Decrease caloric intake Related to Dietary surveillance counseling Dietary counseling Related to Di etary surveillance counseling Decrease caloric intake Related to Dietary surveillance counseling Dietary counseling Related to Di etary surveillance counseling Decrease caloric intake Related to Dietary surveillance counseling Dietary counseling Related to Di etary surveillance counseling Decrease caloric intake Related to Dietary surveillance counseling Dietary counseling Related to Di etary surveillance counseling Decrease caloric intake Related to Dietary surveillance counseling Dietary counseling Related to Di etary surveillance counseling Decrease caloric intake Related to Dietary surveillance counseling Dietary counseling Related to Di etary surveillance counseling Decrease caloric intake Related to Dietary surveillance counseling Dietary counseling Related to Di etary surveillance counseling Decrease caloric intake Related to Dietary surveillance counseling Dietary counseling Related to Di etary surveillance counseling Decrease caloric intake Related to Dietary surveillance counseling Decrease caloric intake Related to Dietary surveillance counseling Dietary counseling Related to Di etary surveillance counseling Dietary counseling Related to Di etary surveillance counseling Decrease caloric intake Related to Dietary surveillance counseling Decrease caloric intake Related to Dietary surveillance counseling Dietary counseling Related to Di etary surveillance counseling Dietary counseling Related to Di etary surveillance counseling Dietary counseling Related to Di etary surveillance counseling Decrease caloric intake Related to Dietary surveillance counseling Dietary counseling Related to Di etary surveillance counseling Decrease caloric intake Related to Dietary surveillance counseling Decrease caloric intake Related to Dietary surveillance counseling Dietary counseling Related to Di etary surveillance counseling Dietary counseling Related to Di etary surveillance counseling Decrease caloric intake Related to Dietary surveillance counseling Decrease caloric intake Related to Dietary surveillance counseling Dietary counseling Related to Di etary surveillance counseling Assessments Type Assessment Date No Information
--- OUTSIDE RECORDS SUMMARY | 2024-05-30 15:15 | XMS_ITS | Encounter Summary ---
Author Organization [facility] Address [address] [place] [address] Care Team Providers Care Solar Fabrication Technician Name Role Phone Unavailable Primary Care Provider Unavailabl e Encounter Details Date Type Department Care Team (Late st Contact Info) Description 02/02/2023 Lab Requisition [facility] - Pathology Lab [address] [place] [address] Khurram Bailey MD [address] [facility] [address] [place] [id number] Illness, unspecified Social History Tobacco Use Types Packs/Day Years Used Date Smoking Tobacco: Never Assessed Sex and Gender Information Value Date Recorded Sex Assigned at Unknown 02/01/2023 3:21 PM CUSTOMER PROJECT MANAGER Gender Identity Female 02/01/2023 3:21 PM CUSTOMER PROJECT MANAGER Sexual Orientation Don't know 02/01/2023 3: 21 PM CUSTOMER PROJECT MANAGER documented as of this encounter Plan of Treatment Not on file documented as of this encounter Procedures Procedure Name Priority Date/Time Associated Diagnosis Comments BONE MARROW BIOPSY (STL) Routine 02/01/2023 9:20 AM CUSTOMER PROJECT MANAGER Illness, unspecified documented in this encounter Results * BONE MARROW BIOPSY (STL) (02/01/2023 9:20 AM CUSTOMER PROJECT MANAGER) Case Report Bone Marrow Patholog y Report Case: [id number] Authorizing Provider: Jonny Bailey MD Collected: 02/01/2023 09:20 AM Ordering Location: [facility] Care Pathology Lab Received: 02/02/2023 01:58 PM Pathologist: Clementina Crump MD Specimens: A) - Bone Marrow Clot B) - Bone Marrow Core 02/03/2023 1:23 PM CUSTOMER PROJECT MANAGER U PATHOLOGY LAB Final Diagnosis Bone marrow, aspirate, clot section, and core biopsy: - Slightly hypocellular marrow with 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 - No evidence of lymphoma or high-grade myeloid neoplasm. - See description. Peripheral blood smear: - Thrombocytopenia. - See description. 02/03/2023 1:23 PM [facility] Comment Additional immunohistochemistry for CD138 (plasma cell marker) and in situ hybridization for kappa and lambda mRNA are pending, and results will be reported in an addendum. 02/03/2023 1:23 PM [facility] Peripheral Smear Description RBC: macrocytic. WBC: normal in number and maturation. No dyspoiesis. Platelets: decreased in number. 02/03/2023 1:23 PM [facility] Bone Marrow Aspirate Differential count (200 cells): 1% blasts, 39% maturing myeloid precursors, 16% erythroid progenitors, 4% monocytes, 1% eosinophils, 36% lymphocytes, 2% plasma cells. Specimen quality: adequate. Spicules: numerous. Trilineage Hematopoiesis: present. Myeloid:Erythroid ratio: normal. Myeloid Maturation: normal. Erythroid Maturation: normal. Megakaryocyte morphology: small, decreased in number. Storage iron (by special stain): decreased to absent. Sideroblastic iron (by special stain): no ring sideroblasts. 02/03/2023 1:23 PM [facility] Bone Marrow Core Biopsy and Clot Section Description Specimen quality: adequate with 1.2 cm of evaluable marrow. Cellularity: 40% Trilineage Hematopoiesis: present. Myeloid to Erythroid ratio: normal. Myeloid maturation and localization: normal. Erythroid maturation and localization: normal. Megakaryocyte number: decreased. Megakaryocyte distribution: few small forms. Lymphoid aggregates: absent. Bone trabeculae: normal. Blood vessels: normal. Plasma cells: normal. Clot section marrow particles: present. Clot section morphology: similar to core biopsy, a rare lymphoid aggregate seen, favor reactive. 02/03/2023 1:23 PM [facility] Flow Cytometry Summary Bone marrow, flow cytometry ([id number]): - No clonal B-cell or increased blast population detected 02/03/2023 1:23 PM [facility] Clinical History Thrombocytopenia. 02/03/2023 1:23 PM [facility] Materials Received Received are 20 slide(s), 3 blocks labeled [id number] along with a copy of the outside pathology report. [place] [address] . All original materials are returned to the referring institution, along with a copy of our final report. 02/03/2023 1:23 PM [facility] Pathologist Location at [facility] 02/03/2023 1:23 PM [facility] Disclaimer The performance characteristics of all immunohistochemical and indirect immunofluorescence stains (if any) cited in this report were determined by the Histopathology Laboratory of [facility]. Some of these tests were developed by our own laboratory and have not been cleared or approved by the US Food and Drug Administration. The FDA does not require this test to go through premarket FDA review. These tests are used for clinical purposes. They should not be regarded as investigational or for research. This laboratory is certified under the Clinical Laboratory Improvement Amendments (CLIA) as qualified to perform high complexity clinical laboratory testing. This case has been personally reviewed and interpreted by the attending (teaching) pathologist. 02/03/2023 1:23 PM [facility] Addendum 1 The CD138 highlights no increase in plasma cells (3-5% of overall cellularity) with no clonality by kappa and lambda mRNA in situ hybridization. Original diagnosis remains unchanged. 02/03/2023 1:23 PM [facility] Addendum electronically signed by Clementina Crump MD on 02/03/2023 at 1:23 PM Embedded Images 02/03/2023 1:23 PM [facility] Pathology/Cytology BONE MARROW SPECIMEN / Unknown 02/01/2023 9:20 AM CUSTOMER PROJECT MANAGER 02/02/2023 1:58 PM CUSTOMER PROJECT MANAGER Miscellaneous samples (specimen) BONE MARROW SPECIMEN / Unknown 02/01/2023 9:20 AM CUSTOMER PROJECT MANAGER 02/02/2023 2:03 PM CUSTOMER PROJECT MANAGER Khurram Bailey MD LAB - PATHO LOGY/CYTOLOGY ORDERABLES [facility] [address] [phone] documented in this encounter Visit Diagnoses Diagnosis Illness, unspecified documented in this encounter
--- OUTSIDE RECORDS SUMMARY | 2024-05-30 15:15 | XMS_ITS | Clinical Summary ---
Author Organization [facility] Address [address] [place] [address] Care Team Providers Care Belt Repairer Name Role Phone Mela Valladares MD Primary Care Provider Allergies Active Allergy Reactions Criticality Noted Date Comments Ibuprofen Nausea and Vomiting Low 04/08/2020 Medications simvastatin (ZOCOR) 5 mg tablet Take 5 mg by mouth. Active multivitamin (DAILY-MODE) tablet Take 1 Tablet by mouth daily. Active cyanocobalamin (VITAMIN B-12) 100 mcg tablet Take 100 mcg by mouth daily. Active cholecalciferol, Vitamin D3, 125 mcg (5,000 unit) Capsule Take 5,000 Units by mouth daily. Active ferrous sulfate 325 mg (65 mg iron) tablet Take 325 mg by mouth daily. Active bacitracin (BACIGUENT) 500 unit/gram Ointment Apply to affected area. 06/19/19 23 Active diclofenac sodium (VOLTAREN) 1 % gel Apply 2 Grams to affected area. 11/17/19 23 Active diclofenac sodium (VOLTAREN XR) 100 mg Extended Release 24 hour tablet Take 100 mg by mouth daily. 11/17/19 23 Active folic acid (FOLVITE) 1 mg tablet Take 1 mg by mouth daily. 11/30/19 23 Active HYDROcodone-acetamin ophen (NORCO) 5-325 mg tablet Take 1 Tablet by mouth every 4 hours as needed. 12/01/19 23 Active lidocaine (XYLOCAINE) 5 % Ointment Apply to affected area daily. 11/17/19 23 Active semaglutide (Ozempic) 0.25 mg or 0.5 mg (2 mg/3 mL) Pen Injector Inject 0.25 mg by subcutaneous injection every 7 days. 11/17/19 23 Active predniSONE (DELTASONE) 10 mg tabletIndications:Ot her secondary thrombocytopenia TAKE 8TABS DAILY X3DAYS, 7TABS DAILY X3DAYS, 6TABS DAILY X3DAYS, 5TABS DAILY X3DAYS, 4TABS DAILY X3DAYS, 3TABS DAILY X3DAYS, 2TABS DAILY X3DAYS, 1TAB DAILY 144 Tablet 05/09/19 24 Active avatrombopag (DOPTELET) 20 mg Tablet tablet Take 1 Tablet (20 mg) by mouth daily. 30 Tablet 5 11/10/19 24 Active predniSONE (DELTASONE) 10 mg tabletIndications:Ot her secondary thrombocytopenia TAKE 8 TABLETS DAILY FOR 3 DAYS AND THEN TAPER 10 MG EVERY THIRD DAY. 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 Encounters Date Type Department Care Team Description 05/27/2024 External Device Data STL ABSTRACTION Provider, Abstract 05/21/2024 External Device Data STL ABSTRACTION Provider, Abstract 05/13/2024 Telephone [facility] Oncology and Hematology [facility] [address] [place] [address] Chino Torres MD Surgical Questions 05/07/2024 External Device Data STL ABSTRACTION Provider, Abstract 04/17/2024 Telephone [facility] Oncology and [facility] [address] [place] [address] Chino Torres MD Hair/Scalp Problem 04/09/2024 External Device Data STL ABSTRACTION Provider, Abstract 04/09/2024 Refill [facility] Oncology and Hematology [facility] [address] [place] [address] Chino Torres MD Reflux gastritis 04/08/2024 Orders Only [facility] Oncology and [facility] [address] [place] [address] Chino Torres MD 04/05/2024 12:45 PM RIVER EXPEDITION GUIDE Office Visit [facility] Oncology and Hematology [place] [address] [place] [address] Chino Torres MD Other secondary thrombocytopenia (Primary Dx) 04/02/2024 External Device Data STL ABSTRACTION Provider, Abstract 03/26/2024 External Device Data STL ABSTRACTION Provider, Abstract 03/08/2024 Refill [facility] Oncology and Hematology [place] [address] [place] [address] Chino Torres MD Other secondary thrombocytopenia from Last 3 Months Family History Medical History Relation Name Comments Cancer Mother Relation Name Status Comments Daughter 1 Alive Daughter 2 Alive Father Mother Sister Alive Son Alive Social History Tobacco Use Types Packs/Day Years Used Date Smoking Tobacco: Every Day Cigarettes 0.5 40.9 Started: 07/14/1983 Smokeless Tobacco: Never Tobacco Cessation:Ready to Q uit: Not Asked; Counseling Given: Not Answered Alcohol Use Standard Drinks/Week Comments Yes 0 (1 standard drink = 0.6 oz pur e alcohol) Comments No Sex and Gender Information Value Date Recorded Sex Assigned at Not on file Legal Sex Female 12:02 PM CDT Gender Identity Not on file Sexual Orientation Not on file Last Filed Vital Signs Vital Sign Reading Time Taken Comments Blood Pressure 123/77 04/05/2024 11:52 AM RIVER EXPEDITION GUIDE Pulse 103 04/05/2024 11:52 AM RIVER EXPEDITION GUIDE Temperature 36.5 C (97.7 F) 04/05/2024 11:52 AM RIVER EXPEDITION GUIDE Respiratory Rate 17 04/05/2024 11:52 AM RIVER EXPEDITION GUIDE Oxygen Saturation 97% 04/05/2024 11:52 AM RIVER EXPEDITION GUIDE Inhaled Oxygen Concentration - - Weight 100.7 kg (222 lb) 04/05/2024 11:52 AM RIVER EXPEDITION GUIDE Height 165.1 cm (5' 5 ) 05/03/2021 3:45 PM RIVER EXPEDITION GUIDE Body Mass Index 36.94 05/03/2021 3:45 PM RIVER EXPEDITION GUIDE Plan of Treatment Upcoming Encounters Date Type Department Care Team (Late st Contact Info) Description 10/03/2024 1:15 PM CDT Office Visit [facility] Oncology and Hematology - [place] [address] [place] [address] Chino Torres MD [address] [facility] [address] [place] [address] Health Maintenance Due Date Last Done Comments DIABETES ANNUAL FOOT EXAM 1982 DIABETES ANNUAL RETINAL EXAM 1982 DIABETES MICROALBUMIN ANNUAL SCREEN 1982 LDL CHOLESTEROL ANNUAL 1982 HEPATITIS B VACCINES (1 of 3 - 19+ 3-dose series) 11/24/1983 CERVICAL CANCER SCREENING 1994 COLORECTAL SCREENING 2009 Colorectal Cancer Screening 2009 FIT-DNA Q 3 years 2009 FIT/FOBT Q 1 year 2009 Flex Sig/CT Colonography Q 5 years 2009 Lung Cancer Screening 2014 ZOSTER VACCINE (1 of 2) 2014 BREAST CANCER SCREENING 12/15/2021 12/15/2020 INFLUENZA VACCINE (#1) 2023 03/10/2022, 2018 Medicare [place] ([place]) Prev entative Visit/Annual Wellness Visit 03/20/2024 DIABETES HBA1C Q 6 MONTHS 04/05/20242023, 04/03/2023, 12/02/2022 DTAP/TDAP/TD VACCINES (2 - T d or Tdap) 02/20/2029 02/20/2019 Procedures Procedure Name Priority Date/Time Associated Diagnosis Comments BASIC METABOLIC PANEL Routine 04/05/2024 8:59 AM RIVER EXPEDITION GUIDE COMPREHENSIVE METABOLIC PANEL Routine 04/05/2024 8:57 AM RIVER EXPEDITION GUIDE from Last 3 Months Results * BASIC METABOLIC PANEL (04/05/2024 8:59 AM RIVER EXPEDITION GUIDE) Blood Chino Torres MD CHEMISTRY ORDERABLES Final Resu lt * COMPREHENSIVE METABOLIC PANEL (04/05/2024 8:57 AM RIVER EXPEDITION GUIDE) Blood Chino Torres MD CHEMISTRY ORDERABLES Final Resu lt from Last 3 Months Insurance [place] [address] [place] [address] RX [facility] Medicare Part D Care Teams Belt Repairer Relationship Specialty Start [place] [address] [address] PCP - General Family Practice 12/23/22
--- OUTSIDE RECORDS SUMMARY | 2024-05-30 15:15 | XMS_ITS | Encounter Summary ---
Author Organization [facility] Address [facility] [place] [address] Care Team Providers Care Machine Brusher Name Role Phone Mela Valladares MD Primary Care Provider [phone] Mela Valladares MD Primary Care Provider [phone] None, Provider Primary Care Provider Unavaila ble None, Provider Primary Care Provider Unavaila ble Alexsandra Brunson Primary Care Provider [phone] Encounter Details Date Type Department Care Team (Late st Contact Info) Description 10/28/2021 [employer] Message Enc [facility] Family & Internal Medicine [address] [address] [facility], [facility] Provider Colonoscopy, Diabetic Eye Exam Social History Tobacco Use Types Packs/Day Years Used Date Smoking Tobacco: Every Day Cigarettes 1 40 Smokeless Tobacco: Never Comments:advised to stop Alcohol Use Standard Drinks/Week Comments Not Currently 70 (1 standard drink = 0.6 oz pure alcohol) 6 or more per day stopped Jan 2021 PHQ-2 Answer Date Recorded PHQ-2 Score - If the patient scores above 3, please move on to questions 3-9 0 10/06/2021 Comments No Sex and Gender Information Value Date Recorded Sex Assigned at Not on file Legal Sex Female 5:50 PM CDT Gender Identity Not on file Sexual Orientation Not on file COVID-19 Exposure Response Date Recorded In the last 10 days, have yo u been in contact with someone who was confirmed or suspected to have Coronavirus/COVID-19? No / Unsure 10/06/2021 8:15 AM CDT documented as of this encounter Plan of Treatment Not on file documented as of this encounter Visit Diagnoses Not on filedocumented in this encounter Additional Health Concerns Infection Onset Date Last Indicated Resolved Time COVID-19 Rule Out 04/26/2022 04/26/2022 04/26/2022 5:07 PM MUD MIXER OPERATOR COVID-19 Rule Out 04/26/2022 04/26/2022 04/27/2022 6:42 PM MUD MIXER OPERATOR Assessment Noted Time PHQ-9 Depression Total Score: 18 022 10:42 AM MUD MIXER OPERATOR documented as of this encounter Care Teams Machine Brusher Relationship Specialty [place] [address] [place] [address] PCP - General FAMILY PRACTICE 02/05/21 03/28/23 [place] [address] [place] [address] PCP - General FAMILY PRACTICE 03/30/23 04/02/23 None, Provider, MD PCP - General UNKNOWN PHYSICIAN SPECIALTY 04/04/23 1 None, Provider, MD PCP - General UNKNOWN PHYSICIAN SPECIALTY 04/03/23 Alexsandra Brunson FNP [address] [place] [address] [address] [place] [address] PCP - General Nurse Practitioner Family 01/06/24 documented as of this encounter
--- OUTSIDE RECORDS SUMMARY | 2024-05-30 15:15 | XMS_ITS | Encounter Summary ---
Author Organization [facility] Address [facility] [place] [address] Care Team Providers Care Ramp And Cargo Supervisor Name Role Phone Pako Vidales MD Primary Care Provider Unava Christopher Cuevas PA-C Primary Care Provider [phone] Mela Valladares MD Primary Care Provider [phone] Mela Valladares MD Primary Care Provider [phone] None, Provider Primary Care Provider Unavaila ble None, Provider Primary Care Provider Unavaila ble Alexsandra Brunson Primary Care Provider [phone] Encounter Details Date Type Department Care Team (Late st Contact Info) Description 07/11/2016 Abstract [facility] [address] [place] [address] , Generic Conversion, Social History Tobacco Use Types Packs/Day Years Used Date Smoking Tobacco: Never Assessed Comments Unknown Sex and Gender Information Value Date Recorded Sex Assigned at Not on file Legal Sex Female 5:50 PM CDT Gender Identity Not on file Sexual Orientation Not on file documented as of this encounter Plan of Treatment Not on file documented as of this encounter Visit Diagnoses Not on filedocumented in this encounter Additional Health Concerns Infection Onset Date Last Indicated Resolved Time COVID-19 Rule Out 04/26/2022 04/26/2022 04/26/2022 5:07 PM SUPPORT TEACHER COVID-19 Rule Out 04/26/2022 04/26/2022 04/27/2022 6:42 PM SUPPORT TEACHER documented as of this encounter Care Teams Ramp And Cargo Supervisor Relationship Specialty Start Date End Date Pako Vidales MD PCP - General INTERNAL MEDICINE 11/16/18 07/26/20 Christopher Mccollum PA-C [address] [place] [address] PCP - General PHYSICIAN HUMAN RESOURCES CONSULTANT 07/27/20 02/04/21 [place] [address] [place] [address] PCP - General FAMILY PRACTICE 02/05/21 03/28/23 [place] [address] [place] [address] PCP - General FAMILY PRACTICE 03/30/23 04/02/23 None, Provider, PCP - General UNKNOWN PHYSICIAN SPECIALTY 04/04/23 01/05/24 None, Provider, PCP - General UNKNOWN PHYSICIAN SPECIALTY 04/03/23 04/03/23 Alexsandra Brunson FNP [address] [place] [address] PCP - General Nurse Practitioner Family 01/06/24 documented as of this encounter
--- OUTSIDE RECORDS SUMMARY | 2024-05-30 15:15 | XMS_ITS | Patient Health Summary ---
Author Organization [facility] Address [address] [place] [address] Care Team Providers Care Grocery Store Manager Name Role Phone Unavailable Primary Care Provider Unavailabl e Note from [facility]non-owned Affiliates and Associated Physician Practices is amultiple site organization consisting of ambulatory clinics and hospital sitesin [place], [place], [place]. This disclosure is being madepursuant to the Care Everywhere program and may not contain all information available regarding this patient. Last updated 17.[facility] Social History Tobacco Use Types Packs/Day Years Used Date Smoking Tobacco: Never Assessed Sex and Gender Information Value Date Recorded Sex Assigned at Unknown 02/01/2023 3:21 PM HOT PLATE PLYWOOD PRESS FEEDER Gender Identity Female 02/01/2023 3:21 PM HOT PLATE PLYWOOD PRESS FEEDER Sexual Orientation Don't know 02/01/2023 3: 21 PM HOT PLATE PLYWOOD PRESS FEEDER Procedures * BONE MARROW BIOPSY (STL)(Performed 02/01/2023) Performed for Illness, unspecified * FLOW CYTOMETRY BONE MARROW(Performed 02/01/2023) Performed for Other secondary thrombocytopenia Results * FLOW CYTOMETRY BONE MARROW (02/01/2023 9:20 AM HOT PLATE PLYWOOD PRESS FEEDER) Case Report Flow Cytometry Case: [id number] Authorizing Provider: Jonny Bailey MD Collected: 02/01/2023 09:20 AM Ordering Location: [facility] Care Pathology Lab Received: 02/01/2023 03:30 PM Pathologist: Clementina Crump MD Specimen: Bone Marrow 02/02/2023 11:46 AM HOT PLATE PLYWOOD PRESS FEEDER U PATHOLOGY LAB Final Diagnosis Bone marrow, flow cytometry: - No clonal B-cell or increased blast population detected 02/02/2023 11:46 AM HOT PLATE PLYWOOD PRESS FEEDER [facility] PATHOLOGY LAB Flow Cytometry Interpretation Viability: 88% B-cells: polytypic, kappa:lambda ratio 1.3:1 T-cells: not increased Blasts: not increased, ~3% represent CD34+ myeloblasts, ~3% represent CD19+/CD10+ hematogones. A bone marrow aspirate smear prepared from the flow cytometry specimen has been reviewed for plant quality manager purposes. 02/02/2023 11:46 AM [facility] PATHOLOGY LAB Flow Cytometry Results Differential Result Comment Flow Cell Count /uL 45,900 Total Viability % 88.0 Lymphocytes % 28 Dim CD45 Region % 10 Monocytes % 10 Granulocytes % 52 02/02/2023 11:46 AM [facility] Reason for test Other secondary thrombocytopenia 287.49 02/02/2023 11:46 AM [facility] PATHOLOGY LAB Client Specimen ID # [id number] 02/02/2023 11:46 AM [facility] PATHOLOGY LAB Number of markers 10 were performed. A-2 Flow CD10 A-3 Flow CD13 A-5 Flow CD20 A-1 Flow CD5 A-4 Flow CD19 A-6 Flow CD33 A-7 Flow CD34 A-8 Flow CD45 A-9 Ludlow+CD19+ A-10 Lambda+CD19+ 02/02/2023 11:46 AM [facility] Pathologist Location at [facility] 02/02/2023 11:46 AM [facility] PATHOLOGY LAB Disclaimer Test performed at [facility], [address] [place] [address], [id number]. *The established laboratory minimum viability is 70%. [...] high complexity clinical testing. 02/02/2023 11:46 AM [facility] Embedded Images 11:46 AM [facility] PATHOLOGY LAB Pathology/Cytolo gy BONE MARROW SPECIMEN / Unknown 02/01/2023 9:20 AM HOT PLATE PLYWOOD PRESS FEEDER 02/01/2023 3:30 PM HOT PLATE PLYWOOD PRESS FEEDER Khurram Bailey MD LAB - PATHO LOGY/CYTOLOGY ORDERABLES [facility] PATHOLOGY LAB [address] [phone] * BONE MARROW BIOPSY (STL) (02/01/2023 9:20 AM HOT PLATE PLYWOOD PRESS FEEDER) Case Report Bone Marrow Patholog y Report Case: [id number] Authorizing Provider: Jonny Bailey MD Collected: 02/01/2023 09:20 AM Ordering Location: [facility] Pathology Lab Received: 02/02/2023 01:58 PM Pathologist: Clementina Crump MD Specimens: A) - Bone Marrow Clot B) - Bone Marrow Core 02/03/2023 1:23 PM [facility] PATHOLOGY LAB Final Diagnosis Bone marrow, aspirate, clot section, and core biopsy: - Slightly hypocellular marrow with 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 - No evidence of lymphoma or high-grade myeloid neoplasm. - See description. Peripheral blood smear: - Thrombocytopenia. - See description. 02/03/2023 1:23 PM [facility] PATHOLOGY LAB Comment Additional immunohistochemistry for CD138 (plasma cell marker) and in situ hybridization for kappa and lambda mRNA are pending, and results will be reported in an addendum. 02/03/2023 1:23 PM [facility] PATHOLOG[facility] LAB Peripheral Smear Description RBC: macrocytic. WBC: normal in number and maturation. No dyspoiesis. Platelets: decreased in number. 02/03/2023 1:23 PM [facility] PATH[facility] LAB Bone Marrow Aspirate [...] stain): no ring sideroblasts. 02/03/2023 1:23 PM [facility] PATH[facility] LAB Bone Marrow Core [...] aggregate seen, favor reactive. 02/03/2023 1:23 PM [facility] PATH[facility] LAB Flow Cytometry Summary Bone marrow, flow cytometry ([id number]): - No clonal B-cell or increased blast population detected 02/03/2023 1:23 PM [facility] PATHOLOGY LAB Clinical History Thrombocytopenia. 02/03/2023 1:23 PM [facility] PATHOLOG[facility] LAB Materials Received Received are 20 slide(s), 3 blocks labeled [id number] along with a copy of the outside pathology report. [place] [address] . All original materials are returned to the referring institution, along with a copy of our final report. 02/03/2023 1:23 PM [facility] PATHOLOGY LAB Pathologist Location at [facility] 02/03/2023 1:23 PM [facility] PATHOLOGY LAB Disclaimer The performance characteristics of all immunohistochemical and indirect immunofluorescence stains (if any) cited in this report were determined by the Histopathology Laboratory of [facility]. Some of these tests were developed by [...] the attending (teaching) pathologist. 02/03/2023 1:23 PM [facility] PATHOLOG[facility] LAB Addendum 1 The CD138 highlights no increase in plasma cells (3-5% of overall cellularity) with no clonality by kappa and lambda mRNA in situ hybridization. Original diagnosis remains unchanged. 02/03/2023 1:23 PM HOT PLATE PLYWOOD PRESS FEEDER [facility] PATHOLOGY LAB Addendum electronically signed by Clementina Crump MD on 02/03/2023 at 1:23 PM Embedded Images 02/03/2023 1:23 PM HOT PLATE PLYWOOD PRESS FEEDER [facility] PATHOLOGY LAB Pathology/Cytology BONE MARROW SPECIMEN / Unknown 02/01/2023 9:20 AM HOT PLATE PLYWOOD PRESS FEEDER 02/02/2023 1:58 PM HOT PLATE PLYWOOD PRESS FEEDER Miscellaneous samples (specimen) BONE MARROW SPECIMEN / Unknown 02/01/2023 9:20 AM HOT PLATE PLYWOOD PRESS FEEDER 02/02/2023 2:03 PM HOT PLATE PLYWOOD PRESS FEEDER Khurram Bailey MD LAB - PATHO LOGY/CYTOLOGY ORDERABLES [facility] PATHOLOGY LAB [address] [phone]
--- OUTSIDE RECORDS SUMMARY | 2024-05-30 15:15 | XMS_ITS | Clinical Summary ---
Author Organization [facility] Address [address] [place] [address] Care Team Providers Care Digital Marketing Specialist Name Role Phone Unavailable Primary Care Provider Unavailabl e Source Comments [facility],non-owned Affiliates and Associated Physician Practices is amultiple site organization consisting of ambulatory clinics and hospital sitesin [place], [place], [place] and [place]. This disclosure is being madepursuant to the Care Everywhere program and may not contain all information available regarding this patient. Last updated 17.[facility] Social History Tobacco Use Types Packs/Day Years Used Date Smoking Tobacco: Never Assessed Sex and Gender Information Value Date Recorded Sex Assigned at Unknown 02/01/2023 3:21 PM COTTAGE ATTENDANT Gender Identity Female 02/01/2023 3:21 PM COTTAGE ATTENDANT Sexual Orientation Don't know 02/01/2023 3: 21 PM COTTAGE ATTENDANT Plan of Treatment Health Maintenance Due Date Last Done Comments COLOGUARD (AGES 45-75) - COL ON CA SCREENING 1964 COLON MONITORING 1964 COLONOSCOPY - COLON CA SCREENING 1964 CT COLONOGRAPHY - COLON CA SCREENING 1964 Colorectal Cancer Screening 1964 FIT - COLON CA SCREENING 1964 FLEX SIG - COLON CA SCREENING 1964 LIPID TESTING 1964 MAMMOGRAM 1964 MEDICARE AWV 12 MONTHS 1964 PAP SMEAR 1964 HIV SCREENING 11/24/1979 HEPATITIS C SCREENING 11/19/1982 DTAP/TDAP/TD VACCINES (1 - Tdap) 11/24/1983 HEPATITIS B VACCINE (1 of 3 - 19+ 3-dose series) 11/24/1983 PNEUMOCOCCAL VACCINE 50+ (1 of 1 - PCV) 2014 ZOSTER VACCINE (1 of 2) 2014 COVID-19 VACCINE (2023-2 5 season) 2023 INFLUENZA VACCINE (#1) 2023 DEPRESSION SCREENING 03/20/2024 HIB VACCINE Aged Out No longer eligi ble based on patient's age to complete this topic HPV VACCINE Aged Out No longer eligi ble based on patient's age to complete this topic MENINGOCOCCAL (Group B) VACC INE SHARED DECISION-MAKING Aged Out No longer eligibl e based on patient's age to complete this topic MENINGOCOCCAL GROUPS A/C/Y/W VACCINE Aged Out No longer eligible b ased on patient's age to complete this topic PNEUMOCOCCAL VACCINE Aged Out No long er eligible based on patient's age to complete this topic
--- OUTSIDE RECORDS SUMMARY | 2024-05-30 15:15 | XMS_ITS | Encounter Summary ---
Author Organization [facility] Address Formerly [facility] [place] [address] Care Team Providers Care Dietary Supervisor Name Role Phone Mela Valladares MD Primary Care Provider [phone] Mela Valladares MD Primary Care Provider [phone] None, Provider Primary Care Provider Unavaila ble None, Provider Primary Care Provider Unavaila ble Alexsandra Brunson Primary Care Provider [phone] Encounter Details Date Type Department Care Team (Late st Contact Info) Description 10/07/2021 Buy[employer] Message Enc [facility] Family & Internal Medicine [address] [address] [place], [facility] Provider paperwork Social History Tobacco Use Types Packs/Day Years [...] Rule Out 04/26/2022 04/26/2022 04/26/2022 5:07 PM PLASTIC DESIGN APPLIER COVID-19 Rule Out 04/26/2022 04/26/2022 04/27/2022 6:42 PM PLASTIC DESIGN APPLIER Assessment Noted Time PHQ-9 Depression Total Score: 18 022 10:42 AM PLASTIC DESIGN APPLIER documented as of this encounter Care Teams Dietary Supervisor Relationship Specialty [place] [address] [place] [address] PCP - General FAMILY PRACTICE 02/05/21 03/28/23 [place] [address] [place] [address] PCP - General FAMILY PRACTICE 03/30/23 04/02/23 None, Provider, PCP - General UNKNOWN PHYSICIAN SPECIALTY 04/04/23 1 None, Provider, MD PCP - General UNKNOWN PHYSICIAN SPECIALTY 04/03/23 Alexsandra Brunson FNP [address] [place] [address] [address] [place] [address] PCP - General Nurse Practitioner Family 01/06/24 documented as of this encounter
--- OUTSIDE RECORDS SUMMARY | 2024-05-30 15:15 | XMS_ITS | Encounter Summary ---
Author Organization [facility] Address [address] [place] [address] Care Team Providers Care Skip Tracer Name Role Phone Mela Valladares MD Primary Care Provider [phone] Mela Valladares MD Primary Care Provider [phone] None, Provider Primary Care Provider Unavaila kylee None, Provider Primary Care Provider Unavaila ble Alexsandra Brunson Primary Care Provider [phone] Encounter Details Date Type Department Care Team (Late st Contact Info) Description 03/09/2023 [employer] Message Enc [facility] Family & Internal Medicine [address] [address] Freya, [facility] Provider Over the counter medication Social History Tobacco Use Types Packs/Day Years Used Date Smoking Tobacco: Every Day Cigarettes 1 40 Passive Smoke Exposure: Current Smokeless Tobacco: Never Comments:Pt is ready to quit Alcohol Use [...] place to sleep or slept in a retirement (including now)? No 06/14/2022 Comments No Sex and Gender Information Value Date Recorded Sex Assigned at Not on file Legal Sex Female 5:50 PM CDT Gender Identity Not on file Sexual Orientation Not on file documented as of this encounter Functional Status * Are you deaf or do you have serious difficulty hearing Answer Date of Assessment Author Status No 06/14/2022 4:56 PM CDT Kortney Ceja RN Active * Are you blind or do you have serious difficulty seeing, even when wearing glasses? Answer Date of Assessment Author Status No 06/14/2022 4:56 PM CDT Kortney Ceja RN Active * Do you have serious difficulty walking or climbing stairs? Answer Date of Assessment Author Status No 06/14/2022 4:56 PM CDT Kortney Ceja RN Active * Do you have difficulty dressing or bathing? Answer Date of Assessment Author Status No 06/14/2022 4:56 PM CDT Kortney Ceja RN Active * Because of a physical, mental, or emotional condition, do you have difficulty doing errands alone such as visiting a doctor's office or shopping? Answer Date of Assessment Author Status No 06/14/2022 4:56 PM CDT Kortney Ceja RN Active documented as of this encounter Mental Status * Because of a physical, mental, or emotional condition, do you have serious difficulty concentrating, remembering, or making decisions? Answer Entry Date Author Status No 06/14/2022 4:56 PM CDT Kortney Ceja RN Active documented in this encounter Plan of Treatment Not on file documented as of this encounter Visit Diagnoses Not on filedocumented in this encounter Additional Health Concerns Assessment Noted Time PHQ-9 Depression Total Score: 1 11/06/19 22 8:20 AM CDT documented as of this encounter Care Teams Skip Tracer Relationship Specialty [place] [address] [place] [address] PCP - General FAMILY PRACTICE 02/05/21 03/28/23 [place] [address] [place] [address] PCP - General FAMILY PRACTICE 03/30/23 04/02/23 None, ProviderMD PCP - General UNKNOWN PHYSICIAN SPECIALTY 04/04/23 1 None, Provider, PCP - General UNKNOWN PHYSICIAN SPECIALTY 04/03/23 Alexsandra Brunson FNP [address] [place] [address] [place] [address] PCP - General Nurse Practitioner Family 01/06/24 documented as of this encounter
--- OUTSIDE RECORDS SUMMARY | 2024-05-30 15:16 | XMS_ITS | Encounter Summary ---
Author Organization [facility] Address [address] [place] [address] Care Team Providers Care Accounts Payable Coordinator Name Role Phone Mela Valladares MD Primary Care Provider [phone] Mela Valladares MD Primary Care Provider [phone] None, Provider Primary Care Provider Unavaila ble None, Provider Primary Care Provider Unavaila ble Alexsandra Brunson Primary Care Provider [phone] Encounter Details Date Type Department Care Team (Late st Contact Info) Description 06/24/2022 popAD Message Enc [facility] Medical Group Family & Internal Medicine [address] [address] Freya, [facility] Provider Due for routine follow up appt Social History Tobacco Use Types Packs/Day Years Used Date Smoking Tobacco: Every Day Cigarettes 0.3 40 Smokeless Tobacco: Never Comments:Pt is ready to [...] place to sleep or slept in a halfway (including now)? No 06/14/2022 Comments No Sex [...] suspected to have Coronavirus/COVID-19? No / Unsure 06/23/2022 8:02 AM CDT documented as of this encounter Functional Status [...] Assessment Author Status No 06/14/2022 4:56 PM Kortney Vu RN Active documented as of this encounter [...] documented as of this encounter Care Teams Accounts Payable Coordinator Relationship Specialty [place] [address] [place] [address] PCP - General FAMILY PRACTICE 02/05/21 03/28/23 [place] [address] [place] [address] PCP - General FAMILY PRACTICE 03/30/23 04/02/23 None, Provider, PCP - General UNKNOWN PHYSICIAN SPECIALTY 04/04/23 1 None, ProviderMD PCP - General UNKNOWN PHYSICIAN SPECIALTY 04/03/23 Alexsandra Brunson, DALILA [address] [place] [address] PCP - General Nurse Practitioner Family 01/06/24 documented as of this encounter
--- OUTSIDE RECORDS SUMMARY | 2024-05-30 15:16 | XMS_ITS | Encounter Summary ---
Author Organization [facility] Address [facility] [place] [address] Care Team Providers Care Ore Feeder Name Role Phone Mela Valladares MD Primary Care Provider [phone] Mela Valladares MD Primary Care Provider [phone] None, Provider Primary Care Provider Unavaila ble None, Provider Primary Care Provider Unavaila ble Alexsandra Brunson Primary Care Provider [phone] Encounter Details Date Type Department Care Team (Late st Contact Info) Description 01/13/2022 [employer] Message Enc [facility] Medical Group Family & Internal Medicine [address] [address] Freya, [facility] Provider Due for routine follow up appointment Social History Tobacco Use Types Packs/Day Years [...] please move on to questions 3-9 0 11/05/2021 Comments No Sex and Gender Information Value [...] Rule Out 04/26/2022 04/26/2022 04/26/2022 5:07 PM FURNACE DOOR TENDER COVID-19 Rule Out 04/26/2022 04/26/2022 04/27/2022 6:42 PM FURNACE DOOR TENDER Assessment Noted Time PHQ-9 Depression Total Score: 1 11/06/19 22 8:20 AM CDT documented as of this encounter Care Teams Ore Feeder Relationship Specialty [place] [address] [place] [address] PCP - General FAMILY PRACTICE 02/05/21 03/28/23 [place] [address] [place] [address] PCP - General FAMILY PRACTICE 03/30/23 04/02/23 None, Provider, PCP - General UNKNOWN PHYSICIAN SPECIALTY 04/04/23 1 None, Provider, PCP - General UNKNOWN PHYSICIAN SPECIALTY 04/03/23 Alexsandra Brunson FNP [facility] [place] [address] [place] [address] PCP - General Nurse Practitioner Family 01/06/24 documented as of this encounter
--- OUTSIDE RECORDS SUMMARY | 2024-05-30 15:16 | XMS_ITS | Encounter Summary ---
Author Organization [facility] Address [facility] [place] [address] Care Team Providers Care Casino Controller Name Role Phone Mela Valladares MD Primary Care Provider [phone] Mela Valladares MD Primary Care Provider [phone] None, Provider Primary Care Provider Unavaila ble None, Provider Primary Care Provider Unavaila ble Alexsandra rBunson Primary Care Provider [phone] Encounter Details Date Type Department Care Team (Late st Contact Info) Description 12/21/2021 [employer] Message Enc [facility] Medical Group Family & Internal Medicine [address] [address] [employer] [facility], [facility] Provider Mammogram Social History Tobacco Use Types Packs/Day Years [...] Rule Out 04/26/2022 04/26/2022 04/26/2022 5:07 PM GUT SNATCHER COVID-19 Rule Out 04/26/2022 04/26/2022 04/27/2022 6:42 PM GUT SNATCHER Assessment Noted Time PHQ-9 Depression Total Score: 1 11/06/19 22 8:20 AM CDT documented as of this encounter Care Teams Casino Controller Relationship Specialty Start [place] [address] [place] [address] PCP - General FAMILY PRACTICE 02/05/21 03/28/23 [place] [address] [place] [address] PCP - General FAMILY PRACTICE 03/30/23 04/02/23 None, Provider, PCP - General UNKNOWN PHYSICIAN SPECIALTY 04/04/23 1 None, Provider, PCP - General UNKNOWN PHYSICIAN SPECIALTY 04/03/23 Alexsandra Brunson FNP [address] [place] [address] [place] [address] PCP - General Nurse Practitioner Family 01/06/24 documented as of this encounter
[2024-05-30 16:34] LABS: Alanine Aminotransferase 90 U/L (6-35); Albumin Level 4.4 g/dL (3.5-5.1); Alkaline Phosphatase 97 U/L (38-126); Anion Gap 11 mmol/L (4-12); Aspartate Amino Transferase 124 U/L (14-36); Bilirubin,Total 0.7 mg/dL (0.2-1.3); Blood Urea Nitrogen 10 mg/dL (7-17); Calcium 9.6 mg/dL (8.4-10.2); Carbon Dioxide 23 mmol/L (22-30); Chloride 105 mmol/L (98-107); Estimated Glomerular Filt Rate > 60; Glucose 115 mg/dL (65-110); Potassium 4.4 mmol/L (3.4-5.0); Sodium 139 mmol/L (137-145)
== END 2024-05-30 13:33 | disposition home or self-care (01) ==
LOC: ANHLAB 13:33
PROVIDERS: PCP Nurse Practitioner Family; Visit Provider Internal Medicine Hematology & Oncology
DX: D69.59 Other secondary thrombocytopenia (principal)
CPT/HCPCS: 36415; 80053; 85025

== ENCOUNTER 2024-10-03 12:56 | Outpatient (CLI) | payer MEDICARE, MEDICAID, SELFPAY ==
--- OUTSIDE RECORDS SUMMARY | 2024-10-03 12:59 | XMS_ITS | Encounter Summary ---
Author Organization [facility] Address [address] [place] [address] Care Team Providers Care Nurse Clinician Name Role Phone Unavailable Primary Care Provider Unavailabl e Encounter Details Date Type Department Care Team (Late st Contact Info) Description 02/02/2023 Lab Requisition [facility] - Pathology Lab [address] [place] [address] Khurram Bailey MD [address] [facility] [address] [place] [address] Illness, unspecified Social History Tobacco Use Types Packs/Day Years Used Date Smoking Tobacco: Never Assessed Comments Unknown Sex and Gender Information Value Date Recorded Sex Assigned at Unknown 02/01/2023 3:21 PM MILK TREATER Legal Sex Female 3:16 PM MILK TREATER Gender Identity Female 02/01/2023 3:21 PM MILK TREATER Sexual Orientation Don't know 02/01/2023 3: 21 PM MILK TREATER documented as of this encounter Plan of Treatment Not on file documented as of this encounter Procedures Procedure Name Priority Date/Time Associated Diagnosis Comments BONE MARROW BIOPSY (STL) Routine 02/01/2023 9:20 AM MILK TREATER Illness, unspecified documented in this encounter Results * BONE MARROW BIOPSY (STL) (02/01/2023 9:20 AM MILK TREATER) Case Report Bone Marrow Patholog y Report Case: [id number] Authorizing Provider: Jonny Bailey MD Collected: 02/01/2023 09:20 AM Ordering Location: [facility] Pathology Lab Received: 02/02/2023 01:58 PM Pathologist: Clementina Crump MD Specimens: A) - Bone Marrow Clot B) - Bone Marrow Core 02/03/2023 1:23 PM MILK TREATER [facility] PATHOLOGY LAB Final Diagnosis Bone marrow, aspirate, clot section, and core biopsy: - Slightly hypocellular marrow with 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 - No evidence of lymphoma or high-grade myeloid neoplasm. - See description. Peripheral blood smear: - Thrombocytopenia. - See description. 02/03/2023 1:[address] [facility] PATHOLOG[facility] LAB at [address] T[address]ATER AP Comment Additional immunohistochemistry for CD138 (plasma cell marker) and in situ hybridization for kappa and lambda mRNA are pending, and results will be reported in an addendum. 02/03/2023 1:[address] [facility] Peripheral Smear Description RBC: macrocytic. WBC: normal in number and maturation. No dyspoiesis. Platelets: decreased in number. 02/03/2023 1:[address] [facility] Bone Marrow Aspirate Differential count [...] stain): no ring sideroblasts. 02/03/2023 1:[address] [facility] Bone Marrow Core Biopsy and [...] aggregate seen, favor reactive. 02/03/2023 1:[address] [facility] Flow Cytometry Summary Bone marrow, flow cytometry ([id number]): - No clonal B-cell or increased blast population detected 02/03/2023 1:[address] [facility] Clinical History Thrombocytopenia. 02/03/2023 1:[address] [facility] Materials Received Received are 20 slide(s), 3 blocks labeled [id number] along with a copy of the outside pathology report. The [place] [address] . All original materials are returned to the referring institution, along with a copy of our final report. 02/03/2023 1:23 PM [facility] Pathologist Location at [facility] 02/03/2023 1:[address] [facility] Disclaimer The performance characteristics of all immunohistochemical and indirect immunofluorescence stains (if any) cited in this report were determined by the Histopathology Laboratory of [facility]. Some of these tests were developed by [...] the attending (teaching) pathologist. 02/03/2023 1:[address] [facility] Addendum 1 The CD138 highlights no increase in plasma cells (3-5% of overall cellularity) with no clonality by kappa and lambda mRNA in situ hybridization. Original diagnosis remains unchanged. 02/03/2023 1:[address] [facility] Addendum electronically signed by Clementina Crump MD on 02/03/2023 at [address]3 MILK TREATER Embedded Images 02/03/2023 1:[address] [facility] Pathology/Cytology BONE MARROW SPECIMEN / Unknown 02/01/2023 9:20 AM MILK TREATER 02/02/2023 1:58 PM MILK TREATER Miscellaneous samples (specimen) BONE MARROW SPECIMEN / Unknown 02/01/2023 9:20 AM MILK TREATER 02/02/2023 2:03 PM MILK TREATER us Khurram Bailey MD LAB - PATHO LOGY/CYTOLOGY ORDERABLES Edited Result - Final [facility] PATHOLOGY LAB [address] [place], [place] [id number] [place] [address] documented in this encounter Visit Diagnoses Diagnosis Illness, unspecified documented in this encounter
--- OUTSIDE RECORDS SUMMARY | 2024-10-03 12:59 | XMS_ITS | Encounter Summary ---
Author Organization [facility] [employer] [facility] Address [address] [place] [address] Care Team Providers Care Tyre Retreader Name Role Phone Mela Valladares MD Primary Care Provider Reason for Visit * Reason Comments Med Refill Encounter Details Date Type Department Care Team (Late Contact Info) Description 09/27/2024 Refill [facility] Oncology and Hematology [address] [place] [address] Chino Torres MD [facility] [address] [place] [phone] Other secondary thrombocytopenia Social History Tobacco Use Types Packs/Day Years Used Date Smoking Tobacco: Every Day Cigarettes 0.5 41.2 Started: 07/14/1983 Smokeless Tobacco: Never Alcohol Use Standard Drinks/Week Comments Yes 0 (1 standard drink = 0.6 oz pur e alcohol) Comments No Sex and Gender Information Value Date Recorded Sex Assigned at Not on file Legal Sex Female 12:02 PM CDT Gender Identity Not on file Sexual Orientation Not on file documented as of this encounter Plan of Treatment Upcoming Encounters Date Type Department Care Team (Late Contact Info) Description 10/03/2024 1:15 PM CDT Office Visit [facility] Oncology and Hematology [facility] [address] [place] [address] Chino Torres MD [address] [place] [address] documented as of this encounter Visit Diagnoses Diagnosis Other secondary thrombocytopenia documented in this encounter Care Teams Tyre Retreader Relationship Specialty Start [place] [address] [address] PCP - General Family Practice 12/23/22 documented as of this encounter
--- OUTSIDE RECORDS SUMMARY | 2024-10-03 12:59 | XMS_ITS | Continuity of Care Document ---
Author Organization [facility] Address [address] [place] [address] [place] [address] Phone Care Team Providers Care Adult Educator Name Role Phone Jarvis Ball MD Unavailable Unavailable Allergies, Adverse Reactions, Alerts Substance Reaction Status Criticality No Known Allergies Active No Inform ation Medications Medication Instructions Dosage Effective Dates (start - stop) Status Comments Xanax 1 mg tablet take 1 tablet (1MG) by oral route 2 times every day 1 MG - Active avoid driving or operate machines Oxford 7.5 mg-325 mg tablet take 1 tablet [...] Diagnoses Date Provider Providers Copied on Encounter [facility], [address], [place], [id number], tel:[phone] [facility] Medicine No Information 5 Quinn Chisholm [address], [address] , [place]. tel:[phone] Referring Provider: Park Hunt [address], [address]. tel:[phone] OFFICE/OUTPA TIENT VISIT, [facility], [address], [place], [address], tel:[phone] [facility] Medicine ADD (chief complaint)k nee pain (chief complaint)a nxiety (chief complaint) Dietary surveillance and counselingCHRONIC PAIN NEC 4 Quinn Chisholm [address], [place], [place], [address] , [place]. tel:[phone] Referring Provider: Park Hunt [address], [place], [place], [address]. tel:[phone] OFFICE/OUTPA TIENT VISIT, [facility], [address], [place], [place], [address], [place] tel:[phone] [facility] GERD (chief complaint)k nee pain (chief complaint)a nxiety (chief complaint)s leep apnea (chief complaint)A DD (chief complaint) Dietary surveillance and counselingSleep ApneaGERDChronic Fatigue SyndromePain in joint involving lower leg 4 Quinn Conley. [address], [place], [place], [address] , [place]. tel:[phone] Referring Provider: Park Hunt [address], [place], [address]. tel:[phone] OFFICE/OUTPA TIENT VISIT, [facility], [address], [place], [address], [place] tel:[phone] [facility] knee pain (chief complaint)a nxiety (chief complaint)A DD (chief complaint) Dietary surveillance and counselingPain in joint involving lower legSleep Apnea 4 Quinn Chisholm [address], [place], [address] , [place]. tel:[phone] Referring Provider: Park Hunt [address], [place], [place], [address]. tel:[phone] OFFICE/OUTPA TIENT VISIT, [facility], [address], [place], [place], [address], [place] tel:[phone] [facility] HLP (chief complaint)a nxiety (chief complaint)s leep apnea (chief complaint)A DD (chief complaint) Dietary surveillance and counselingFatigue / MalaiseOther and unspecified hyperlipidemiaSlee p Apnea 4 Quinn Conley. [address], [place], [place], [address] , [place]. [phone] Referring Provider: Park Hunt [address], [place], [place], [address]. tel:[phone] OFFICE/OUTPA TIENT VISIT, [facility], [address], [place], [place], [address], [place] [phone] [facility] knee pain (chief complaint)a nxiety (chief complaint)A DD (chief complaint) Dietary surveillance and counselingPain in joint involving lower legFatigue / Malaise May- 0 4 Quinn Conley. [address], [place], [place], [address] , [place]. [phone] Referring Provider: Park Hunt [address], [place], [address]. tel:[phone] [facility], [address], [place], [place], [address], [place] tel:[phone] [facility] No Information May-0 4 Quinn Conley. [address], [place], [place], [address] , [place]. [phone] Referring Provider: Park Hunt [address], [place], [address]. tel:[phone] OFFICE/OUTPA TIENT VISIT, [facility], [address], [place], [place], [address], [place] [phone] [facility] depression (chief complaint)H LP (chief complaint)K Nee pain (chief complaint)s leep apnea (chief complaint) Dietary surveillance and counselingOther and unspecified hyperlipidemiaPain in joint involving lower legSleep ApneaChronic Fatigue Syndrome Apr- 4 Quinn Conley. [address], [place], [place], [address] , [place]. [phone] Referring Provider: Park Hunt [address], [place], [address]. tel:[phone] OFFICE/OUTPA TIENT VISIT, [facility], [address], [place], [place], [address], [place] tel:[phone] [facility] Knee pain (chief complaint)m etabolic syndrome (chief complaint)a nxiety (chief complaint)H LP (chief complaint) Dietary surveillance and counselingMetaboli c SyndromeOther and unspecified hyperlipidemiaPain in joint involving lower leg 4 Quinn Conley. [address], [place], [place], [address] , [place]. tel:[phone] Referring Provider: Jarvis Ball, [address], [place], [place], [address]. tel:[phone] [facility], [address], [place], [place], [address], [place] tel:[phone] [facility] No Information 4 Quinn Conley. [address], [place], [address] , [place]. tel:[phone] OFFICE/OUTPA TIENT VISIT, [facility], [address], [place], [place], [address], [place] tel:[phone] [facility] HLP (chief complaint)K Nee pain (chief complaint)G ERD (chief complaint) Dietary surveillance and counselingGERDPain in joint involving lower legOther and unspecified hyperlipidemia 3 Quinn Conley. [address], [place], [address] , [place]. tel:[phone] Referring Provider: Jarvis Ball, [address], [place], [place], [address]. tel:[phone] OFFICE/OUTPA TIENT VISIT, [facility], [address], [place], [address], [place] tel:[phone] [facility] HLP (chief complaint)K Nee pain (chief complaint)a nxiety (chief complaint)s leep apnea (chief complaint) Dietary surveillance and counselingPain in joint involving lower legSleep ApneaOther and unspecified hyperlipidemia 3 Quinn Conley. [address], [place], [address] , [place]. tel:[phone] Referring Provider: Park Hunt [address], [place], [place], [address]. tel:[phone] OFFICE/OUTPA TIENT VISIT, [facility], [address], [place], [place], [address], [place] tel:[phone] [facility] sleep apnea (chief complaint)a nxiety (chief complaint)K Nee pain (chief complaint) Dietary surveillance and counselingPain in joint involving lower legSleep ApneaGeneralized anxiety disorder 3 Quinn Conley. [address], [place], [place], [address] , [place]. tel:[phone] Referring Provider: Park Hunt [address], [place], [address]. tel:[phone] OFFICE/OUTPA TIENT VISIT, [facility], [address], [place], [place], [address], [place] tel:[phone] [facility] right knee pain (chief complaint)S leep apnea (chief complaint)a nxiety (chief complaint)w eight gain (chief complaint) Dietary surveillance and counselingAbnormal weight gainSleep ApneaPain in joint involving lower legMetabolic Syndrome 3 Quinn Conley. [address], [place], [address] , [place]. tel:[phone] Referring Provider: Park Hunt [address], [place], [address]. tel:[phone] OFFICE/OUTPA TIENT VISIT, [facility], [address], [place], [place], [address], [place] tel:[phone] [facility] Knee pain (chief complaint)H LP (chief complaint)s leep apnea (chief complaint) Dietary surveillance and counselingSleep ApneaPain in joint involving lower legOther and unspecified hyperlipidemia 3 Quinn Conley. [address], [place], [place], [address] , [place]. tel:[phone] Referring Provider: Jarvis Ball, [address], [place], [place], [address]. tel:[phone] [facility], [address], [place], [place], [address], [place] tel:[phone] [facility] Sleep Apnea 3 Quinn Conley. [address], [place], [place], [address] , [place]. tel:[phone] Referring Provider: Park Hunt [address], [place], [place], [address]. tel:[phone] OFFICE/OUTPA TIENT VISIT, [facility], [address], [place], [place], [address], [place] tel:[phone] [facility] HLP (chief complaint)f atigue (chief complaint)k nee pain (chief complaint) Dietary surveillance and counselingFatigue / MalaiseOther and unspecified hyperlipidemiaSlee p Apnea 3 Quinn Conley. [address], [place], [place], [address] , [place]. tel:[phone] Referring Provider: Park [address], [place], [place], [address]. tel:[phone] OFFICE/OUTPA TIENT VISIT, [facility], [address], [place], [place], [address], [place] tel:[phone] [facility] fatigue (chief complaint)K Nee pain (chief complaint)H Lp (chief complaint) Dietary surveillance and counselingFatigue / MalaiseOther and unspecified hyperlipidemiaCHRO BHAVYA PAIN NECUnspecified vitamin d deficiency 3 Quinn Conley. [address], [place], [place], [address] , [place]. tel:[phone] Referring Provider: Park Hunt [address], [place], [place], [address]. tel:[phone] OFFICE/OUTPA TIENT VISIT, [facility], [address], [place], [place], [address], [place] tel:[phone] [facility] KNee pain (chief complaint)a nxiety (chief complaint) Pain in joint involving lower legMetabolic SyndromeOther and unspecified hyperlipidemia Jun- 3 Quinn Conley. [address], [place], [place], [address] , [place]. tel:[phone] Referring Provider: Park Hunt [address], [place], [place], [address]. tel:[phone] OFFICE/OUTPA TIENT VISIT, [facility], [address], [place], [place], [address], [place] tel:[phone] [facility] anxiety (chief complaint)k nee pain (chief complaint) Dietary surveillance and counselingPain in joint involving lower legOther and unspecified hyperlipidemia May- 3 Quinn Conley. [address], [place], [address] , [place]. tel:[phone] Referring Provider: Park [address], [place], [address]. tel:[phone] OFFICE/OUTPA TIENT VISIT, [facility], [address], [place], [place], [address], [place] tel:[phone] [facility] KNee pain (chief complaint)H TN (chief complaint) Dietary surveillance and counselingPain in joint involving lower legHypertension, UnspecifiedHypokal emia Apr- 3 Quinn Conley. [address], [place], [place], [address] , [place]. tel:[phone] Referring Provider: Park Hunt [address], [place], [address]. tel:[phone] OFFICE/OUTPA TIENT VISIT, [facility], [address], [place], [address], [place] tel:[phone] [facility] HLP (chief complaint)k nee pain (chief complaint)A nxiety (chief complaint) Dietary surveillance and counselingMetaboli c SyndromeOther and unspecified hyperlipidemiaPain in joint involving lower leg Fe 3 Quinn Conley. [address], [place], [place], [address] , [place]. [phone] Referring Provider: Jarvis Ball, [address], [place], [place], [address]. tel:[phone] OFFICE/OUTPA TIENT VISIT, [facility], [address], [place], [place], [address], [place] tel:[phone] [facility] KNee pain (chief complaint) Dietary surveillance and counselingPain in joint involving lower leg 3 Quinn Conley. [address], [place], [address] , [place]. tel:[phone] Referring Provider: Jarvis Ball, [address], [place], [place], [address]. tel:[phone] OFFICE/OUTPA TIENT VISIT, [facility], [address], [place], [place], [address], [place] tel:[phone] [facility] knee pain (chief complaint)a nxiety (chief complaint)o beisty (chief complaint) Dietary surveillance and counselingPain in joint involving lower legAbnormal weight gainOther and unspecified hyperlipidemia 2 Quinn Conley. [address], [place], [place], [address] , [place]. tel:[phone] Referring Provider: Park [address], [place], [address]. tel:[phone] OFFICE/OUTPA TIENT VISIT, [facility], [address], [place], [address], [place] tel:[phone] [facility] knee pain (chief complaint)a nxiety (chief complaint)H LP (chief complaint) Dietary surveillance and counselingOther and unspecified hyperlipidemiaPain in joint involving lower leg 2 Quinn Conley. [address], [place], [place], [address] , [place]. [phone] Referring Provider: Park [address], [place], [address]. tel:[phone] OFFICE/OUTPA TIENT VISIT, [facility], [address], [place], [place], [address], [place] [phone] [facility] chronic pain (chief complaint)f atigue (chief complaint)m ood change (chief complaint) Dietary surveillance and counselingCHRONIC PAIN NECFatigue / Malaise 2 Quinn Chisholm [address], [place], [place], [address] , [place]. tel:[phone] Referring Provider: Park [address], [place], [place], [address]. tel:[phone] OFFICE/OUTPA TIENT VISIT, [facility], [address], [place], [place], [address], [place] tel:[phone] [facility] anxiety (chief complaint)f atigue (chief complaint) Dietary surveillance and counselingFatigue / MalaiseCHRONIC PAIN NEC 2 Quinn Chisholm [address], [place], [address] , [place]. tel:[phone] Referring Provider: Park Hunt [address], [place], [place], [address]. tel:[phone] Family History Family Member Type Diagnosis Age [...]
--- OUTSIDE RECORDS SUMMARY | 2024-10-03 12:59 | XMS_ITS | Encounter Summary ---
Author Organization [facility] Address [address] [place] [address] Care Team Providers Care Continuous Washer Operator Name Role Phone Unavailable Primary Care Provider Unavailabl e Encounter Details Date Type Department Care Team (Late st Contact Info) Description 02/01/2023 Lab Requisition [facility] - Pathology Lab [address] [place] [address] Khurram Bailey MD [address] [facility] [address] [place] [address] Other secondary thrombocytopenia Social History Tobacco Use Types Packs/Day Years Used Date Smoking Tobacco: Never Assessed Comments Unknown Sex and Gender Information Value Date Recorded Sex Assigned at Unknown 02/01/2023 3:21 PM CERTIFIED NUTRITIONIST Legal Sex Female 3:16 PM CERTIFIED NUTRITIONIST Gender Identity Female 02/01/2023 3:21 PM CERTIFIED NUTRITIONIST Sexual Orientation Don't know 02/01/2023 3: 21 PM CERTIFIED NUTRITIONIST documented as of this encounter Plan of Treatment Not on file documented as of this encounter Procedures Procedure Name Priority Date/Time Associated Diagnosis Comments FLOW CYTOMETRY BONE MARROW Routine 02/01/2023 9:20 AM CERTIFIED NUTRITIONIST Other secondary thrombocytopenia documented in this encounter Results * FLOW CYTOMETRY BONE MARROW (02/01/2023 9:20 AM CERTIFIED NUTRITIONIST) Case Report Flow Cytometry Case: [id number] Authorizing Provider: Jonny Bailey MD Collected: 02/01/2023 09:20 AM Ordering Location: [facility] Care Pathology Lab Received: 02/01/2023 03:30 PM Pathologist: Clementina Crump MD Specimen: Bone Marrow 02/02/2023 11:46 AM CERTIFIED NUTRITIONIST U PATHOLOGY LAB Final Diagnosis Bone marrow, flow cytometry: - No clonal B-cell or increased blast population detected 02/02/2023 11:46 AM [facility] PATHOLOGY LAB at 1146 CERTIFIED NUTRITIONIST Flow Cytometry Interpretation Viability: 88% B-cells: polytypic, kappa:lambda ratio 1.3:1 T-cells: not increased Blasts: not increased, ~3% represent CD34+ myeloblasts, ~3% represent CD19+/CD10+ hematogones. A bone marrow aspirate smear prepared from the flow cytometry specimen has been reviewed for supervisor quality control purposes. 02/02/2023 11:46 AM [facility] PATHOLOGY LAB Flow Cytometry Results Differential Result Comment Flow Cell Count /uL 45,900 Total Viability % 88.0 Lymphocytes % 28 Dim CD45 Region % 10 Monocytes % 10 Granulocytes % 52 02/02/2023 11:46 AM [facility] Reason for test Other secondary thrombocytopenia 287.49 02/02/2023 11:46 AM [facility] PATHOLOGY LAB Client Specimen ID # [id number] 02/02/2023 11:46 AM [facility] PATHOLOGY LAB Number of markers 10 were performed. A-2 Flow CD10 A-3 Flow CD13 A-5 Flow CD20 A-1 Flow CD5 A-4 Flow CD19 A-6 Flow CD33 A-7 Flow CD34 A-8 Flow CD45 A-9 Olympia+CD19+ A-10 Lambda+CD19+ 02/02/2023 11:46 AM [facility] PATHOLOGY LAB Pathologist Location at [facility] 02/02/2023 11:46 AM [facility] PATHOLOGY LAB Disclaimer Test performed at [facility], [address] [place] [address], [id number]. *The established laboratory minimum viability is 70%. [...] high complexity clinical testing. 02/02/2023 11:46 AM [facility] PATHOLOGY LAB Embedded Images 11/16/202 3 11:46 AM CERTIFIED NUTRITIONIST [facility] PATHOLOGY LAB Pathology/Cytolo gy BONE MARROW SPECIMEN / Unknown 02/01/2023 9:20 AM CERTIFIED NUTRITIONIST 02/01/2023 3:30 PM CERTIFIED NUTRITIONIST Khurram Bailey MD LAB - PATHOLOGY/CYT OLOGY ORDERABLES Final Result Performing Organization Address City/State/[facility] Co de Phone Number [facility] PATHOLOGY LAB [address] [phone] documented in this encounter Visit Diagnoses Diagnosis Other secondary thrombocytopenia documented in this encounter
--- OUTSIDE RECORDS SUMMARY | 2024-10-03 12:59 | XMS_ITS | Encounter Summary ---
Author Organization [facility] Address [address] [place] [address] Care Team Providers Care Client Engagement Specialist Name Role Phone Mela Valladares MD Primary Care Provider Reason for Visit * Reason Comments Med Refill Encounter Details Date Type Department Care Team (Late Contact Info) Description 10/02/2024 Refill [facility] Oncology and Hematology [address] [place] [address] Chino Torres MD [facility] [address] [place] [phone] Other secondary thrombocytopenia Social History Tobacco [...] Visit [facility] Oncology and Hematology [facility] [address] [place] [address] Chino Torres MD [address] [place] [phone] documented as of this encounter Visit Diagnoses Diagnosis Other secondary thrombocytopenia documented in this encounter Care Teams Client Engagement Specialist Relationship Specialty [place] [address] [address] [address] PCP - General Family Practice 12/23/22 documented as of this encounter
--- OUTSIDE RECORDS SUMMARY | 2024-10-03 12:59 | XMS_ITS | Clinical Summary ---
Author Organization [facility] Address [address] [place] [address] Care Team Providers Care Regional Sales Leader Name Role Phone Unavailable Primary Care Provider Unavailabl e Source Comments [facility],non-owned Affiliates and Associated Physician Practices is amultiple site organization consisting of ambulatory clinics and hospital sitesin [place], [place], [place] and [place]. This disclosure is being madepursuant to the Care Everywhere program and may not contain all information available regarding this patient. Last updated 17.[facility] Social History Tobacco Use Types Packs/Day Years Used Date Smoking Tobacco: Never Assessed Comments Unknown Sex and Gender Information Value Date Recorded Sex Assigned at Unknown 02/01/2023 3:21 PM MONUMENT SETTER HELPER Legal Sex Female 3:16 PM MONUMENT SETTER HELPER Gender Identity Female 02/01/2023 3:21 PM MONUMENT SETTER HELPER Sexual Orientation Don't know 02/01/2023 3: 21 PM MONUMENT SETTER HELPER Plan of Treatment Health Maintenance Due Date Last Done Comments COLOGUARD (AGES 45-75) - COL ON CA SCREENING 1964 COLON MONITORING 1964 COLONOSCOPY - COLON CA SCREENING 1964 CT COLONOGRAPHY - COLON CA SCREENING 1964 Colorectal Cancer Screening 1964 FIT - COLON CA SCREENING 1964 FLEX SIG - COLON CA SCREENING 1964 LIPID TESTING 1964 MAMMOGRAM 1964 MEDICARE AWV 12 MONTHS 1964 HIV SCREENING 11/24/1979 HEPATITIS C SCREENING 11/19/1982 DTAP/TDAP/TD VACCINES (1 - Tdap) 11/24/1983 HEPATITIS B VACCINE (1 of 3 - 19+ 3-dose series) 11/24/1983 PAP SMEAR 1985 PNEUMOCOCCAL VACCINE 50+ (1 of 1 - PCV) 2014 ZOSTER VACCINE (1 of 2) 2014 COVID-19 VACCINE ( - 2023-2 5 season) 2023 DEPRESSION SCREENING 03/20/2024 INFLUENZA VACCINE (#1) 2024 HIB VACCINE Aged Out No longer eligi [...] on patient's age to complete this topic Insurance MEDICARE [place]ICAID [place]
--- OUTSIDE RECORDS SUMMARY | 2024-10-03 12:59 | XMS_ITS | Clinical Summary ---
Author Organization [facility] Address [address] [place] [address] Care Team Providers Care Lunchroom Mother Name Role Phone Mela Valladares MD Primary Care Provider [phone] Allergies Active Allergy Reactions Criticality Noted Date [...] 500 unit/gram Ointment Apply to affected area. 023 Active diclofenac sodium (VOLTAREN) 1 % gel Apply 2 Grams to affected area. Active diclofenac sodium (VOLTAREN XR) 100 mg Extended Release 24 hour tablet Take 100 mg by mouth daily. Active folic acid (FOLVITE) 1 mg tablet Take 1 mg by mouth daily. Active HYDROcodone-acetami nophen (NORCO) 5-325 mg tablet Take 1 Tablet by mouth every 4 hours as needed. Active lidocaine (XYLOCAINE) 5 % Ointment Apply to affected area daily. Active semaglutide (Ozempic) 0.25 mg or 0.5 mg (2 mg/3 mL) Pen Injector Inject 0.25 mg by subcutaneous injection every 7 days. 023 Active predniSONE (DELTASONE) 10 mg tabletIndications:O ther secondary thrombocytopenia TAKE 8TABS DAILY X3DAYS, 7TABS DAILY X3DAYS, 6TABS DAILY X3DAYS, 5TABS DAILY X3DAYS, 4TABS DAILY X3DAYS, 3TABS DAILY X3DAYS, 2TABS DAILY X3DAYS, 1TAB DAILY 144 Tablet 024 Active avatrombopag (DOPTELET) 20 mg Tablet tablet Take 1 Tablet (20 mg) by mouth daily. 30 Tablet 5 024 Active predniSONE (DELTASONE) 10 mg tabletIndications:O ther secondary thrombocytopenia TAKE 8 TABS BY MOUTH DAILY FOR 3 DAYS AND THEN TAPER 1 TABLET EVERY THIRD DAY. 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 [address] [place] [address] Chino Torres MD Other secondary thrombocytopenia 10/01/2024 External Device Data STL ABSTRACTION Provider, Abstract 09/27/2024 [facility] Oncology and Hematology [address] [place] [phone] Chino Torres MD Reflux gastritis 09/27/2024 [facility] Oncology and Hematology [facility] [address] [place] [phone] Chino Torers MD Other secondary thrombocytopenia 09/10/2024 External Device Data STL ABSTRACTION Provider, Abstract 08/13/2024 External Device Data STL ABSTRACTION Provider, Abstract 08/06/2024 External Device Data STL ABSTRACTION Provider, Abstract from Last 3 Months Family History Medical History Relation Name Comments Cancer Mother Relation Name Status Comments Daughter 1 Alive Daughter 2 Alive Father Mother Sister Alive Son Alive Social History Tobacco Use Types Packs/Day Years Used Date Smoking Tobacco: Every Day Cigarettes 0.5 41.2 Started: 07/14/1983 Smokeless Tobacco: Never Tobacco Cessation:Ready [...] Comments Blood Pressure 123/77 04/05/2024 11:52 AM MANAGER PURCHASING Pulse 103 04/05/2024 11:52 AM MANAGER PURCHASING Temperature 36.5 C (97.7 F) 04/05/2024 11:52 AM MANAGER PURCHASING Respiratory Rate 17 04/05/2024 11:52 AM MANAGER PURCHASING Oxygen Saturation 97% 04/05/2024 11:52 AM MANAGER PURCHASING Inhaled Oxygen Concentration - - Weight 100.7 kg (222 lb) 04/05/2024 11:52 AM MANAGER PURCHASING Height 165.1 cm (5' 5) 05/03/2021 3:45 PM MANAGER PURCHASING Body Mass Index 36.94 05/03/2021 3:45 PM MANAGER PURCHASING Plan of Treatment Upcoming Encounters Date Type Department Care Team (Late st Contact Info) Description 10/03/2024 1:15 PM CDT Office Visit [facility] Oncology and Hematology - [address] [facility] [address] [place] [address] Chino Torres MD [address] [facility] [address] [place] [address] Health Maintenance Due Date Last Done Comments DIABETES ANNUAL FOOT EXAM 1982 DIABETES ANNUAL RETINAL EXAM 1982 DIABETES MICROALBUMIN ANNUAL SCREEN 1982 LDL CHOLESTEROL ANNUAL 1982 HEPATITIS B VACCINES (1 of 3 - 19+ 3-dose series) 11/24/1983 COLORECTAL SCREENING 2009 Colorectal Cancer Screening 2009 FIT-DNA Q 3 years 2009 FIT/FOBT Q 1 year 2009 Flex Sig/CT Colonography Q 5 years 2009 Lung Cancer Screening 2014 ZOSTER VACCINE (1 of 2) 2014 BREAST CANCER SCREENING 12/15/2021 12/15/2020, 12/15 DIABETES HBA1C Q 6 MONTHS 04/05/20242023, 04/03/2023, 12/02/2022 INFLUENZA VACCINE (#1) 2024 03/10/2022, 2018 DTAP/TDAP/TD VACCINES (2 - T d or Tdap) 02/20/2029 02/20/2019 Insurance [place] [id number] [employer] [facility] Medicare Part D Care Teams Lunchroom Mother Relationship Specialty [place] [address] [address] PCP - General Family Practice 12/23/22
[2024-10-03 13:08] LABS: Hematocrit 47.1 % (37.0-47.0); Hemoglobin 16.1 g/dL (12.0-15.0); Immature Granulocyte Percent A 0.3 % (0-0.5); Lymphocytes Absolute Auto 1.50 K/mm3 (0.9-3.2); Mean Corpuscular HGB Conc 34.2 g/dl (32-36); Mean Corpuscular Hemoglobin 33.0 pg (26-34); Mean Corpuscular Volume 96.5 fl (80-100); Nucleated Red Blood Cells Absolute Auto 0.000 K/mm3 (0.0-0.012); Nucleated Red Blood Cells Perc 0.0 % (0.0-0.2); Platelet Count Result 198 k/mm3 (150-375); Red Blood Count 4.88 M/mm3 (4.2-5.4); White Blood Count 6.0 K/mm3 (4.5-10.0)
[2024-10-03 13:11] LABS: Blood Urea Nitrogen 4 mg/dL (8-26); Carbon Dioxide 22 mmol/L (22-30); Chloride 104 mmol/L (98-109); Estimated Glomerular Filt Rate > 60; Glucose 168 mg/dL (70-105); Ionized Calcium (POC) 1.16 mmol/L (1.11-1.31); Potassium 3.9 mmol/L (3.5-4.9); Sodium 140 mmol/L (138-146)
[2024-10-03 16:47] LABS: Alanine Aminotransferase 81 U/L (6-35); Albumin Level 4.6 g/dL (3.5-5.1); Alkaline Phosphatase 67 U/L (38-126); Anion Gap 12 mmol/L (4-12); Aspartate Amino Transferase 131 U/L (14-36); Bilirubin,Total 0.4 mg/dL (0.2-1.3); Blood Urea Nitrogen 5 mg/dL (7-17); Calcium 9.7 mg/dL (8.4-10.2); Carbon Dioxide 22 mmol/L (22-30); Chloride 105 mmol/L (98-107); Estimated Glomerular Filt Rate > 60; Glucose 170 mg/dL (65-110); Potassium 3.9 mmol/L (3.4-5.0); Sodium 139 mmol/L (137-145); Total Protein 7.7 g/dL (6.3-8.2)
== END 2024-10-03 12:57 | disposition home or self-care (01) ==
PROVIDERS: PCP Nurse Practitioner Family; Visit Provider Internal Medicine Hematology & Oncology
DX: D69.59 Other secondary thrombocytopenia (principal)
CPT/HCPCS: 36415; 80047; 80053; 85025

== ENCOUNTER 2024-12-11 13:21 | Outpatient (CLI) | payer MEDICARE, MEDICAID, SELFPAY ==
--- OUTSIDE RECORDS SUMMARY | 2024-12-11 13:32 | XMS_ITS | Encounter Summary ---
Author Organization [facility] Address [address] [place] [address] Care Team Providers Care Singer And Unloader Name Role Phone Unavailable Primary Care Provider Unavailabl e Encounter Details Date Type Department Care Team (Late st Contact Info) Description 02/02/2023 Lab Requisition [facility] - Pathology Lab [address] [place] [address] Khurram Bailey MD [address] [facility] [address] [place] [address] Illness, unspecified Social History Tobacco Use Types Packs/Day Years Used Date Smoking Tobacco: Never Assessed Comments Unknown Sex and Gender Information Value Date Recorded Sex Assigned at Unknown 02/01/2023 3:21 PM INDUSTRIAL SALES ENGINEER Legal Sex Female 3:16 PM INDUSTRIAL SALES ENGINEER Gender Identity Female 02/01/2023 3:21 PM INDUSTRIAL SALES ENGINEER Sexual Orientation Don't know 02/01/2023 3: 21 PM INDUSTRIAL SALES ENGINEER documented as of this encounter Plan of Treatment Not on file documented as of this encounter Procedures Procedure Name Priority Date/Time Associated Diagnosis Comments BONE MARROW BIOPSY (STL) Routine 02/01/2023 9:20 AM INDUSTRIAL SALES ENGINEER Illness, unspecified documented in this encounter Results * BONE MARROW BIOPSY (STL) (02/01/2023 9:20 AM INDUSTRIAL SALES ENGINEER) Case Report Bone Marrow Patholog y Report Case: [id number] Authorizing Provider: Jonny Bailey MD Collected: 02/01/2023 09:20 AM Ordering Location: [facility] Pathology Lab Received: 02/02/2023 01:58 PM Pathologist: Clementina Crump MD Specimens: A) - Bone Marrow Clot B) - Bone Marrow Core 02/03/2023 1:23 PM INDUSTRIAL SALES ENGINEER U PATHOLOGY LAB Final Diagnosis Bone marrow, aspirate, clot section, and core biopsy: - Slightly hypocellular marrow with 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 - No evidence of lymphoma or high-grade myeloid neoplasm. - See description. Peripheral blood smear: - Thrombocytopenia. - See description. 02/03/2023 1:23 PM [facility] PATHOLOGY LAB at 1448 INDUSTRIAL SALES ENGINEER AP Comment Additional immunohistochemistry for CD138 (plasma cell marker) and in situ hybridization for kappa and lambda mRNA are pending, and results will be reported in an addendum. 02/03/2023 1:23 PM [facility] PATHOLOGY LAB Peripheral Smear Description RBC: macrocytic. WBC: normal in number and maturation. No dyspoiesis. Platelets: decreased in number. 02/03/2023 1:23 PM [facility] PATHOLOGY LAB Bone Marrow Aspirate [...] stain): no ring sideroblasts. 02/03/2023 1:23 PM [facility] PATHOLOGY LAB Bone Marrow Core [...] aggregate seen, favor reactive. 02/03/2023 1:23 PM [facility] PATHOLOGY LAB Flow Cytometry Summary Bone marrow, flow cytometry ([id number]): - No clonal B-cell or increased blast population detected 02/03/2023 1:23 PM [facility] PATHOLOG[facility] LAB Clinical History Thrombocytopenia. 02/03/2023 1:23 PM [facility] PATHOLOG[facility] Materials Received Received are 20 slide(s), 3 blocks labeled [id number] along with a copy of the outside pathology report. [place] [address] . All original materials are returned to the referring institution, along with a copy of our final report. 02/03/2023 1:23 PM [facility] Pathologist Location at [facility] 02/03/2023 1:23 PM [facility] PATHOLOG[facility] LAB Disclaimer The performance characteristics of all immunohistochemical and indirect immunofluorescence stains (if any) cited in this report were determined by the Histopathology Laboratory of [facility]. Some of these tests were [...] the attending (teaching) pathologist. 02/03/2023 1:23 PM [facility] PATHOLOGY LAB Addendum 1 The CD138 highlights no increase in plasma cells (3-5% of overall cellularity) with no clonality by kappa and lambda mRNA in situ hybridization. Original diagnosis remains unchanged. 02/03/2023 1:23 PM [facility] PATH[facility] Addendum electronically signed by Clementina Crump MD on 02/03/2023 at 1323 INDUSTRIAL SALES ENGINEER Embedded Images 02/03/2023 1:23 PM [facility] PATHOLOGY LAB Pathology/Cytology BONE MARROW SPECIMEN / Unknown 02/01/2023 9:20 AM INDUSTRIAL SALES ENGINEER 02/02/2023 1:58 PM INDUSTRIAL SALES ENGINEER Miscellaneous samples (specimen) BONE MARROW SPECIMEN / Unknown 02/01/2023 9:20 AM INDUSTRIAL SALES ENGINEER 02/02/2023 2:03 PM INDUSTRIAL SALES ENGINEER us Khurram Bailey MD LAB - PATHO LOGY/CYTOLOGY ORDERABLES Edited Result - Final [facility] PATHOLOGY LAB [address] [place], [place] [id number] [place] [address] documented in this encounter Visit Diagnoses Diagnosis Illness, unspecified documented in this encounter
--- OUTSIDE RECORDS SUMMARY | 2024-12-11 13:32 | XMS_ITS | Encounter Summary ---
Author Organization [facility] Address [address] [place] [address] Care Team Providers Care Economic Historian Name Role Phone Unavailable Primary Care Provider Unavailabl e Encounter Details Date Type Department Care Team (Late st Contact Info) Description 02/01/2023 Lab Requisition [facility] - Pathology Lab [address] [place] [address] Khurram Bailey MD [address] [facility] [address] [place] [address] Other secondary thrombocytopenia Social History Tobacco Use Types Packs/Day Years Used Date Smoking Tobacco: Never Assessed Comments Unknown Sex and Gender Information Value Date Recorded Sex Assigned at Unknown 02/01/2023 3:21 PM STAFFING COORDINATOR Legal Sex Female 3:16 PM STAFFING COORDINATOR Gender Identity Female 02/01/2023 3:21 PM STAFFING COORDINATOR Sexual Orientation Don't know 02/01/2023 3: 21 PM STAFFING COORDINATOR documented as of this encounter Plan of Treatment Not on file documented as of this encounter Procedures Procedure Name Priority Date/Time Associated Diagnosis Comments FLOW CYTOMETRY BONE MARROW Routine 02/01/2023 9:20 AM STAFFING COORDINATOR Other secondary thrombocytopenia documented in this encounter Results * FLOW CYTOMETRY BONE MARROW (02/01/2023 9:20 AM STAFFING COORDINATOR) Case Report Flow Cytometry Case: [id number] Authorizing Provider: Jonny Bailey MD Collected: 02/01/2023 09:20 AM Ordering Location: [facility] Care Pathology Lab Received: 02/01/2023 03:30 PM Pathologist: Clementina Crump MD Specimen: Bone Marrow 02/02/2023 11:46 AM STAFFING COORDINATOR U PATHOLOGY LAB Final Diagnosis Bone marrow, flow cytometry: - No clonal B-cell or increased blast population detected 02/02/2023 11:46 AM [facility] PATHOLOGY LAB at 1146 STAFFING COORDINATOR Flow Cytometry Interpretation Viability: 88% B-cells: polytypic, kappa:lambda ratio 1.3:1 T-cells: not increased Blasts: not increased, ~3% represent CD34+ myeloblasts, ~3% represent CD19+/CD10+ hematogones. A bone marrow aspirate smear prepared from the flow cytometry specimen has been reviewed for billing and quality technician purposes. 02/02/2023 11:46 AM [facility] PATHOLOGY LAB Flow Cytometry Results Differential Result Comment Flow Cell Count /uL 45,900 Total Viability % 88.0 Lymphocytes % 28 Dim CD45 Region % 10 Monocytes % 10 Granulocytes % 52 02/02/2023 11:46 AM [facility] Reason for test Other secondary thrombocytopenia 287.49 02/02/2023 11:46 AM [facility] PATHOLOGY LAB Client Specimen ID # [id number] 02/02/2023 11:46 AM [facility] PATHOLOGY LAB Number of markers 10 were performed. A-2 Flow CD10 A-3 Flow CD13 A-5 Flow CD20 A-1 Flow CD5 A-4 Flow CD19 A-6 Flow CD33 A-7 Flow CD34 A-8 Flow CD45 A-9 [place]+CD19+ A-10 Lambda+CD19+ 02/02/2023 11:46 AM [facility] PATHOLOGY LAB Pathologist Location at [facility] 02/02/2023 11:46 AM [facility] PATHOLOGY LAB Disclaimer Test performed at [facility], [address] [place] [address], [id number]. *The established laboratory minimum viability is 70%. [...] high complexity clinical testing. 02/02/2023 11:46 AM [facility] PATHOLOGY LAB Embedded Images 11/16/202 3 11:46 AM STAFFING COORDINATOR [facility] PATHOLOGY LAB Pathology/Cytolo gy BONE MARROW SPECIMEN / Unknown 02/01/2023 9:20 AM STAFFING COORDINATOR 02/01/2023 3:30 PM STAFFING COORDINATOR Khurram Bailey MD LAB - PATHOLOGY/CYT OLOGY ORDERABLES Final Result Performing Organization Address City/State/[facility] Co de Phone Number [facility] PATHOLOGY LAB [address] [phone] documented in this encounter Visit Diagnoses Diagnosis Other secondary thrombocytopenia documented in this encounter
--- OUTSIDE RECORDS SUMMARY | 2024-12-11 13:32 | XMS_ITS | Encounter Summary ---
Author Organization [facility] Address [address] [place] [address] Care Team Providers Care Subassemblies Wirer Name Role Phone Mela Valladares MD Primary Care Provider [phone] Mela Valladares MD Primary Care Provider [phone] None, Provider Primary Care Provider Unavaila ble None, Provider Primary Care Provider Unavaila ble Alexsandra Brunson Primary Care Provider [phone] Encounter Details Date Type Department Care Team (Late st Contact Info) Description 06/24/2022 [employer] Message Enc [facility] Medical Group Family & Internal Medicine [address] [address] Freya, [facility] Provider Due for routine follow up appt [...] place to sleep or slept in a longterm (including now)? No 06/14/2022 Comments No Sex [...] Author Status No 06/14/2022 4:56 PM CDT Wurm, Kortney R, ASSOCIATE DIRECTOR CAREER SERVICES Active * Are you blind or do you have serious difficulty seeing, even when wearing glasses? Answer Date of Assessment Author Status No 06/14/2022 4:56 PM CDT Kortney Ceja ASSOCIATE DIRECTOR CAREER SERVICES Active * Do you have serious difficulty walking or climbing stairs? Answer Date of Assessment Author Status No 06/14/2022 4:56 PM CDT Kortney Ceja ASSOCIATE DIRECTOR CAREER SERVICES Active * Do you have difficulty dressing or bathing? Answer Date of Assessment Author Status No 06/14/2022 4:56 PM CDT Kortney Ceja ASSOCIATE DIRECTOR CAREER SERVICES Active * Because of a physical, mental, or emotional condition, do you have difficulty doing errands alone such as visiting a doctor's office or shopping? Answer Date of Assessment Author Status No 06/14/2022 4:56 PM CDT Kortney Ceja ASSOCIATE DIRECTOR CAREER SERVICES Active documented as of this encounter Mental Status * Because of a physical, mental, or emotional condition, do you have serious difficulty concentrating, remembering, or making decisions? Answer Entry Date Author Status No 06/14/2022 4:56 PM CDT Kortney Ceja ASSOCIATE DIRECTOR CAREER SERVICES Active documented in this encounter Plan of Treatment Not on file documented as of this encounter Visit Diagnoses Not on filedocumented in this encounter Additional Health Concerns Assessment Noted Time PHQ-9 Depression Total Score: 1 11/06/19 22 8:20 AM CDT documented as of this encounter Care Teams Subassemblies Wirer Relationship Specialty [place] [address] [place] [address] PCP - General FAMILY PRACTICE 02/05/21 03/28/23 [place] [address] [place] [address] PCP - General FAMILY PRACTICE 03/30/23 04/02/23 None, Provider, PCP - General UNKNOWN PHYSICIAN SPECIALTY 04/04/23 1 None, ProviderMD PCP - General UNKNOWN PHYSICIAN SPECIALTY 04/03/23 Alexsandra Brunson, DALILA [address] [place] [address] PCP - General Nurse Practitioner Family 01/06/24 documented as of this encounter
--- OUTSIDE RECORDS SUMMARY | 2024-12-11 13:32 | XMS_ITS | Encounter Summary ---
Author Organization [facility] Address [facility] [place] [address] Care Team Providers Care Corduroy Cutting Supervisor Name Role Phone Mela Valladares MD Primary Care Provider [phone] Mela Valladares MD Primary Care Provider [phone] None, Provider Primary Care Provider Unavaila ble None, Provider Primary Care Provider Unavaila ble Alexsandra Brunson Primary Care Provider [phone] Encounter Details Date Type Department Care Team (Late st Contact Info) Description 12/21/2021 [employer]oo [employer] Message Enc [facility] Medical Group Family & Internal Medicine [address] [address] [employer], [facility] Provider Mammogram Social History Tobacco Use Types [...] Rule Out 04/26/2022 04/26/2022 04/26/2022 5:07 PM FUNERAL ATTENDANT COVID-19 Rule Out 04/26/2022 04/26/2022 04/27/2022 6:42 PM FUNERAL ATTENDANT Assessment Noted Time PHQ-9 Depression Total Score: 1 11/06/19 22 8:20 AM CDT documented as of this encounter Care Teams Corduroy Cutting Supervisor Relationship Specialty [place] [address] [place] [address] PCP - General FAMILY PRACTICE 02/05/21 03/28/23 [place] [address] [place] [address] PCP - General FAMILY PRACTICE 03/30/23 04/02/23 None, Provider, PCP - General UNKNOWN PHYSICIAN SPECIALTY 04/04/23 1 None, Provider, PCP - General UNKNOWN PHYSICIAN SPECIALTY 04/03/23 Alexsandra Brunson FNP [address] [place] [address] [place] [address] PCP - General Nurse Practitioner Family 01/06/24 documented as of this encounter
--- OUTSIDE RECORDS SUMMARY | 2024-12-11 13:32 | XMS_ITS | Clinical Summary ---
Author Organization [facility] Address [address] [place] [address] Care Team Providers Care Sulfur Chloride Operator Name Role Phone Alexsandra Brunson SSAS DEVELOPER Primary Care Provider Allergies Active Allergy Reactions [...] Type II diabetes mellitus, w ell controlled ([facility]) 03/10/2022 Anxiety and depression 03/10/2022 Paranoia (psychosis) ([facility]) 2 Fibroids 04/08/2020 Elevated cholesterol with elevated triglycerides 04/08/2020 Diabetes type 2, uncontrolled 04/08/2020 Arthritis 04/08/2020 Labial cyst 04/08/2020 Bilateral knee pain 11/28/2018 Encounters Date Type Department Care Team Description 10/03/2024 Scan [facility] INFO SRVCS Scanned, Doc Med Group from Last 3 Months Immunizations Immunization Administration Dates Next Due Flucelvax 6 Months+ [...] place to sleep or slept in a alf (including now)? No 06/14/2022 Comments No Sex [...] P M CDT Height 165.1 cm (5' 5) 01/06/2024 5:45 PM CDT Body Mass Index [...] 10/02/2023 04/03/2023, 11/18, 06/23/2022, Additional history exists Lipid Panel 12/03/2023 12/02/2022, 09/18, 07/27/2020, Additional history exists PHQ-2 (Physician [place]) 03/20/2024 COVID-19 Vaccine ( season) 2024 05/05/2021, 07/16/2020, 06/23/2020 RSV Immunization or 60+ Years (1 - Risk 60-74 years 1-dose series) 2024 DTaP, Tdap and Td Vaccines (3 - Td or Tdap) 02/20/2029 02/20/2019, 02/20/2019 Colorectal Cancer Screening FIT/FOBT (1 Year) Discontinued 01/08/2018 Hepatitis C Completed 11/11/2020, 10/01/2016 Pneumococcal Vaccine: 50+ Years Completed 03/10/2022 Meningococcal B Vaccine Aged Out [...] HEMOGLOBIN, GLYCOSYLATED (04/03/2023) HGB A1C 5.1 % [id number] ADE MARTINES 04/03/2023 Mela Valladares MD LABORATORY Final Result -[id number] [facility] [address] [facility] [address] [place] [address], * (ABNORMAL) LIPID PANEL (12/02/2022 8:34 AM CDT) CHOLESTEROL 254(H) <200.0 MG/DL 12/02/2022 1:36 PM CDT [facility] TRIGLYCERIDES 217(H) <150 MG/DL 12/02/2022 1:36 PM CDT [facility] HDL 58 >40.0 MG/DL 12/02/2022 1:36 PM T [facility] LDL (CALCULATED) 153(H) <100 MG/DL 12/02/2022 1:36 PM T [facility] NON HDL CHOLESTEROL 196(H) <130 MG/DL 12/02/2022 1:36 PM T [facility] CHOL/HDL RATIO 4.4 0.0 - 4.5 12/02/2022 1:36 PM CDT [facility] VLDL CALCULATION 43 5 - 55 MG/DL 12/02/2022 1:36 PM T [facility] LIPID INTERPRETATION 12/02/2022 1:36 PM T [facility] Comment: NIH CONCENSUS REPORT RECOMMENDATIONS: ADULT CHILD LOW RISK: CHOLESTEROL <200 <170 TRIGLYCERIDE <150 --- HDL >=60 --- LDL <100 <110 BORDERLINE: CHOLESTEROL 200-239 170-199 TRIGLYCERIDE 150-199 --- HDL 40-59 --- LDL 100-159 110-129 HIGH RISK: CHOLESTEROL >=240 >=200 TRIGLYCERIDE >=200 --- HDL <40 --- LDL >=160 >=130 12/02/2022 8:34 AM CDT Mela Valladares MD LABORATORY Final Result [facility] [address] [place] [address], * MG SCREENING W JESSE CONNIE DIGI [...] Voice recognition software utilized. Referred By: JOSE CHAKRABORTY Interpreted By: Lance Recinos, 12/15/2020 4:46 PM Jose MENDOZA Final Result * HEPATITIS C RNA W/ REFLX GENOTYPE (11/11/2020 10:56 AM CDT) HEPATITIS C RNA PCR QNT <15 IU/mL 11/13/2020 7:57 PM CDT [facility] ALVAREZ Comment: HCV RNA Not Detected HEP C RNA PCR QNT LOG <1.18 log IU/mL 11/13/2020 7:57 PM CDT Want[facility] ALVAREZ Comment: HCV RNA Not Detected Reference Range: Not Detected IU/mL Not Detected Log IU/mL This test was performed using Real-Time Polymerase Chain Reaction. Reportable range is 15 IU/mL to 100,000,000 IU/mL (1.18 Log IU/mL to 8.00 Log IU/mL). For additional information please refer to http://education.[employer]/faq/YEC76g7 (This link is being provided for informational/ educational purposes only.) The analytical performance characteristics of this assay have been determined by [facility], [place]. The modifications have not been cleared or approved by the FDA. This assay has been validated pursuant to the CLIA regulations and is used for clinical purposes. HEPATITIS C VIRAL RNA GENOTYPE REPORT 11/13/2020 7:57 PM CDT [facility] KATI ALVAREZ Comment: Additional testing for Hepatitis C was not indicated. Test Performed by [employer] [facility], [facility], [address] [place], [place] Da Riley M.D., Ph.D., Director of Laboratories , CLIA [id number] 11/11/2020 10:5 6 AM CDT Christopher Mccollum PA-C LABORATORY Final Resul t [facility] [address] [place] [address], [place] [phone] * OCCULT BLOOD, FECES (01/08/2018 7:15 PM CDT) OCCULT BLOOD FECAL NEGATIVE NEGATIVE 01/08/2018 8:02 PM CDT [facility] 01/08/2018 7:15 PM CDT 01/08/2018 8:01 PM CDT us Generic Conversion Md BODY FLUIDS AND STOOLS ORDERABLES Final Result [facility] [address] [place] [address], [place] [phone] from Last 3 Months or Most Recently Relevant to Health Maintenance Insurance MEDICAID MEDICARE Advance Directives * Full Code (Latest Code Status on File) Date Activated Date Inactivated Comments 06/14/2022 3:49 PM 06/18/2022 2:44 PM Care Teams Sulfur Chloride Operator Relationship Specialty Start Date End Date Alexsandra Brunson FNP [address] [place] [address] PCP - General Nurse Practitioner Family 01/06/24
--- OUTSIDE RECORDS SUMMARY | 2024-12-11 13:32 | XMS_ITS | Clinical Summary ---
Author Organization [facility] [employer] Address [address] [place] [address] Care Team Providers Care Diesel Technician Name Role Phone Unavailable Primary Care Provider Unavailabl e Source Comments [facility] [employer],non-owned Affiliates and Associated Physician Practices is amultiple site organization consisting of ambulatory clinics and hospital sitesin [place], [place], [place] and [place]. This disclosure is being madepursuant to the Care Everywhere program and may not contain all information available regarding this patient. Last updated 17.[facility] [employer] Social History Tobacco Use Types Packs/Day Years Used Date Smoking Tobacco: Never Assessed Comments Unknown Sex and Gender Information Value Date Recorded Sex Assigned at Unknown 02/01/2023 3:21 PM CERTIFIED OPHTHALMIC ASSISTANT Legal Sex Female 3:16 PM CERTIFIED OPHTHALMIC ASSISTANT Gender Identity Female 02/01/2023 3:21 PM CERTIFIED OPHTHALMIC ASSISTANT Sexual Orientation Don't know 02/01/2023 3: 21 PM CERTIFIED OPHTHALMIC ASSISTANT Plan of Treatment Health Maintenance Due Date [...] 11/19/1982 DTAP/TDAP/TD VACCINES (1 - Tdap) 11/24/1983 PAP SMEAR 1985 PNEUMOCOCCAL VACCINE 50+ (1 of 1 - PCV) 2014 ZOSTER VACCINE (1 of 2) 2014 DEPRESSION SCREENING 03/20/2024 COVID-19 VACCINE (1 - 2023-2 5 season) 2024 INFLUENZA VACCINE (#1) 2024 Respiratory Syncytial Virus (RSV) Vaccine Pt: or over 60 yrs (1 - 1-dose 75+ series) 11/24/2039 HEPATITIS B VACCINE Aged Out No longe r eligible based on patient's age to complete this topic HIB VACCINE Aged Out No longer eligi [...]
--- OUTSIDE RECORDS SUMMARY | 2024-12-11 13:32 | XMS_ITS | Encounter Summary ---
Author Organization [facility] Address [address] [place] [address] Care Team Providers Care Power Saw Mechanic Name Role Phone Pako Vidales MD Primary Care Provider Unava Christopher Cuevas PA-C Primary Care Provider [phone] Mela Valladares MD Primary Care Provider [phone] Mela Valladares MD Primary Care Provider [phone] None, Provider Primary Care Provider Unavaila ble None, Provider Primary Care Provider Unavaila ble Alexsandra Brunson Primary Care Provider [phone] Encounter Details Date Type Department Care Team (Late st Contact Info) Description 07/11/2016 Abstract [facility] CONVERSION [address] [place] [address] , Generic Conversion, Social History [...] Rule Out 04/26/2022 04/26/2022 04/26/2022 5:07 PM EYE DROPPER ASSEMBLER COVID-19 Rule Out 04/26/2022 04/26/2022 04/27/2022 6:42 PM EYE DROPPER ASSEMBLER documented as of this encounter Care Teams Power Saw Mechanic Relationship Specialty Start Date End Date Pako Vidales MD PCP - General INTERNAL MEDICINE 11/16/18 07/26/20 Christopher Mccollum PA-C [address] [place] [address] PCP - General PHYSICIAN MOTORCYCLE SALES ASSOCIATE 07/27/20 02/04/21 [place] [address] [place] [address] PCP - General FAMILY PRACTICE 02/05/21 03/28/23 [place] [address] [place] [address] PCP - General FAMILY PRACTICE 03/30/23 04/02/23 None, Provider, PCP - General UNKNOWN PHYSICIAN SPECIALTY 04/04/23 01/05/24 None, Provider, PCP - General UNKNOWN PHYSICIAN SPECIALTY 04/03/23 04/03/23 Alexsandra Brunson FNP [address] [address] [place] [address] PCP - General Nurse Practitioner Family 01/06/24 documented as of this encounter
--- OUTSIDE RECORDS SUMMARY | 2024-12-11 13:32 | XMS_ITS | Clinical Summary ---
Author Organization [facility] Address [address] [place] [address] Care Team Providers Care Shingle Shearing Machine Operator Name Role Phone Mela Valladares MD Primary Care Provider [phone] Allergies Active Allergy Reactions Criticality Noted Date [...] mg tabletIndications:Ot her secondary thrombocytopenia TAKE 8 TABS BY MOUTH DAILY FOR 3 DAYS AND THEN TAPER 1 TABLET EVERY THIRD DAY. 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 Encounters Date Type Department Care Team Description 12/03/2024 External Device Data [facility] ABSTRACTION Provider, Abstract 12/03/2024 External Device Data [facility]CTION Provider, Abstract 11/26/2024 External Device Data [facility]STRACTION Provider, Abstract 11/05/2024 External Device Data [facility] ABSTRACTION Provider, Abstract 10/24/2024 Refill [facility] Oncology and Hematology - [place] [address] [place] [address] Chino Torres MD Reflux gastritis 10/22/2024 External Device Data [facility] ABSTRACTION Provider, Abstract 10/08/2024 External Device Data [facility] ABSTRACTION Provider, Abstract 10/07/2024 Orders Only [facility] Oncology and Hematology - [place] [address] [place] [address] Chino Torres MD 10/04/2024 Orders Only [facility] Oncology and Hematology - [place] [address] [place] [address] Chino Torres MD 10/03/2024 1:15 PM CDT Office Visit [facility] Oncology and Hematology - [place] [address] [place] [address] Chino Torres MD Other secondary thrombocytopenia (Primary Dx) 10/02/2024 External Device Data ST[facility] ABSTRACTION Provider, Abstract 10/02/[facility] [place] [address] [place] [address] Chino Torres MD Other secondary thrombocytopenia 10/01/2024 External Device Data ST[facility] ABSTRACTION Provider, Abstract 09/27/2024 [facility] Oncology and Hematology - [place] [address] [place] [address] Chino Torres MD Reflux gastritis 09/27/2024 [facility] Oncology and Hematology - [place] [address] [place] [address] Chino Torres MD Other secondary thrombocytopenia 09/10/2024 External Device Data ST[facility] ABSTRACTION Provider, Abstract from Last 3 Months Family History Medical History Relation Name Comments Cancer Mother Relation Name Status Comments Daughter 1 Alive Daughter 2 Alive Father Mother Sister Alive Son Alive Social History Tobacco Use Types Packs/Day Years Used Date Smoking Tobacco: Every Day Cigarettes 0.5 41.4 Started: 07/14/1983 Smokeless Tobacco: Never Alcohol Use [...] Sign Reading Time Taken Comments Blood Pressure 127/79 10/03/2024 1:13 PM CDT Pulse 110 10/03/2024 1:10 PM CDT Temperature 36.6 C (97.9 F) 10/03/2024 1:10 PM CDT Respiratory Rate 16 10/03/2024 1:10 PM CDT Oxygen Saturation 97% 10/03/2024 1:10 PM CDT Inhaled Oxygen Concentration - - Weight 103.2 kg (227 lb 8 oz) 10/03/2024 1:10 PM CDT Height 165.1 cm (5' 5) 05/03/2021 3:45 PM RIG BUILDER HELPER Body Mass Index 37.86 05/03/2021 3:45 PM RIG BUILDER HELPER Plan of Treatment Upcoming Encounters Date Type Department Care Team (Late st Contact Info) Description 12/11/2024 2:15 PM CDT Office Visit [facility] Oncology and Hematology - [place] [address] [place] [address] Chino Torres MD [address] [place] [address] Health Maintenance Due Date Last Done Comments DIABETES ANNUAL FOOT EXAM 1982 DIABETES ANNUAL RETINAL EXAM 1982 DIABETES MICROALBUMIN ANNUAL SCREEN 1982 LDL CHOLESTEROL ANNUAL 1982 COLORECTAL SCREENING 2009 Colorectal Cancer Screening 2009 FIT-DNA Q 3 years 2009 FIT/FOBT Q 1 year 2009 Flex Sig/CT Colonography Q 5 years 2009 Lung Cancer Screening 2014 ZOSTER VACCINE (1 of 2) 2014 BREAST CANCER SCREENING 12/15/2021 12/15/2020, 12/15 DIABETES HBA1C Q 6 MONTHS 04/05/20242023, 04/03/2023, 12/02/2022 INFLUENZA VACCINE (#1) 2024 03/10/2022, 2018 HEPATITIS B VACCINES (1 of 3 - Risk 3-dose series) 2024 RSV VACCINE (60+ or ) (1 - Risk 60-74 years 1-dose series) 2024 DTAP/TDAP/TD VACCINES (2 - T d or Tdap) 02/20/2029 02/20/2019 Procedures Procedure Name Priority Date/Time Associated Diagnosis Comments BASIC METABOLIC PANEL Routine 10/03/2024 5:03 PM CDT CBC WITH DIFFERENTIAL Routine 10/03/2024 5:02 PM CDT COMPREHENSIVE METABOLIC PANEL Routine 10/03/2024 2:25 PM CDT from Last 3 Months Results * BASIC METABOLIC PANEL (10/03/2024 5:03 PM CDT) Blood Chino Torres MD CHEMISTRY ORDERABLES Final Resu lt * CBC WITH DIFFERENTIAL (10/03/2024 5:02 PM CDT) Blood Chino Torres MD HEMATOLOGY ORDERABLES Final Res ult * COMPREHENSIVE METABOLIC PANEL (10/03/2024 2:25 PM CDT) Blood Chino Torres MD CHEMISTRY ORDERABLES Final Resu lt from Last 3 Months Insurance MEDICAID [place] [facility] Medicare Part D Care Teams Shingle Shearing Machine Operator Relationship Specialty [place] [address] [address] PCP - General Family Practice 12/23/22
--- OUTSIDE RECORDS SUMMARY | 2024-12-11 13:32 | XMS_ITS | Encounter Summary ---
Author Organization [facility] Address [facility] [place] [address] Care Team Providers Care Manufacturing Laborer Name Role Phone Mela Valladares MD Primary Care Provider [phone] Mela Valladares MD Primary Care Provider [phone] None, Provider Primary Care Provider Unavaila ble None, Provider Primary Care Provider Unavaila ble Alexsandra Brunson Primary Care Provider [phone] Encounter Details Date Type Department Care Team (Late st Contact Info) Description 10/07/2021 [employer] Message Enc [facility] Medical Group Family & Internal Medicine [address] [address] [employer], [facility] Provider paperwork Social History Tobacco Use [...] Rule Out 04/26/2022 04/26/2022 04/26/2022 5:07 PM IOS SOFTWARE ENGINEER COVID-19 Rule Out 04/26/2022 04/26/2022 04/27/2022 6:42 PM IOS SOFTWARE ENGINEER Assessment Noted Time PHQ-9 Depression Total Score: 18 022 10:42 AM IOS SOFTWARE ENGINEER documented as of this encounter Care Teams Manufacturing Laborer Relationship Specialty [place] [address] [place] [address] PCP - General FAMILY PRACTICE 02/05/21 03/28/23 [place] [address] [place] [address] PCP - General FAMILY PRACTICE 03/30/23 04/02/23 None, Provider, PCP - General UNKNOWN PHYSICIAN SPECIALTY 04/04/23 1 None, Provider, MD PCP - General UNKNOWN PHYSICIAN SPECIALTY 04/03/23 Alexsandra Brunson FNP [address] [place] [address] [place] [address] PCP - General Nurse Practitioner Family 01/06/24 documented as of this encounter
--- OUTSIDE RECORDS SUMMARY | 2024-12-11 13:32 | XMS_ITS | Encounter Summary ---
Author Organization [facility] Address [address] [place] [address] Care Team Providers Care Wire Preparation Machine Tender Name Role Phone Mela Valladares MD Primary Care Provider [phone] Mela Valladares MD Primary Care Provider [phone] None, Provider Primary Care Provider Unavaila kylee None, Provider Primary Care Provider Unavaila ble Alexsandra Brunson Primary Care Provider [phone] Encounter Details Date Type Department Care Team (Late st Contact Info) Description 03/09/2023 [employer] Message Enc [facility] Medical Group Family & Internal Medicine [address] [address] Freya, [facility] Provider Over the counter medication [...] place to sleep or slept in a prison (including now)? No 06/14/2022 Comments No Sex [...] No 06/14/2022 4:56 PM CDT Kortney Ceja NP Active * Are you blind or do you have serious difficulty seeing, even when wearing glasses? Answer Date of Assessment Author Status No 06/14/2022 4:56 PM CDT Wurm, Kortney R, HUMAN RELATIONS TEACHER Active * Do you have serious difficulty walking or climbing stairs? Answer Date of Assessment Author Status No 06/14/2022 4:56 PM CDT Kortney Ceja HUMAN RELATIONS TEACHER Active * Do you have difficulty dressing or bathing? Answer Date of Assessment Author Status No 06/14/2022 4:56 PM CDT Kortney Ceja HUMAN RELATIONS TEACHER Active * Because of a physical, mental, or emotional condition, do you have difficulty doing errands alone such as visiting a doctor's office or shopping? Answer Date of Assessment Author Status No 06/14/2022 4:56 PM CDT Kortney Ceja HUMAN RELATIONS TEACHER Active documented as of this encounter Mental Status * Because of a physical, mental, or emotional condition, do you have serious difficulty concentrating, remembering, or making decisions? Answer Entry Date Author Status No 06/14/2022 4:56 PM CDT Kortney Ceja HUMAN RELATIONS TEACHER Active documented in this encounter Plan of Treatment Not on file documented as of this encounter Visit Diagnoses Not on filedocumented in this encounter Additional Health Concerns Assessment Noted Time PHQ-9 Depression Total Score: 1 11/06/19 22 8:20 AM CDT documented as of this encounter Care Teams Wire Preparation Machine Tender Relationship Specialty [place] [address] [place] [address] PCP - General FAMILY PRACTICE 02/05/21 03/28/23 [place] [address] [place] [address] PCP - General FAMILY PRACTICE 03/30/23 04/02/23 None, ProviderMD PCP - General UNKNOWN PHYSICIAN SPECIALTY 04/04/23 1 None, ProviderMD PCP - General UNKNOWN PHYSICIAN SPECIALTY 04/03/23 Alexsandra Brunson FNP [address] [place] [address] [place] [address] PCP - General Nurse Practitioner Family 01/06/24 documented as of this encounter
--- OUTSIDE RECORDS SUMMARY | 2024-12-11 13:32 | XMS_ITS | Encounter Summary ---
Author Organization [facility] Address [facility] [place] [address] Care Team Providers Care Sales Administrator Name Role Phone Mela Valladares MD Primary Care Provider [phone] Mela Valladares MD Primary Care Provider [phone] None, Provider Primary Care Provider Unavaila ble None, Provider Primary Care Provider Unavaila ble Alexsandra Brunson Primary Care Provider [phone] Encounter Details Date Type Department Care Team (Late st Contact Info) Description 10/28/2021 [employer] Message Enc [facility] Family & Internal Medicine [address] [address] [employer], [facility] Provider Colonoscopy, Diabetic Eye Exam Social History [...] Rule Out 04/26/2022 04/26/2022 04/26/2022 5:07 PM EXCHANGE ARCHITECT COVID-19 Rule Out 04/26/2022 04/26/2022 04/27/2022 6:42 PM EXCHANGE ARCHITECT Assessment Noted Time PHQ-9 Depression Total Score: 18 022 10:42 AM EXCHANGE ARCHITECT documented as of this encounter Care Teams Sales Administrator Relationship Specialty [place] [address] [place] [address] PCP - General FAMILY PRACTICE 02/05/21 03/28/23 [place] [address] [place] [address] PCP - General FAMILY PRACTICE 03/30/23 04/02/23 None, Provider, MD PCP - General UNKNOWN PHYSICIAN SPECIALTY 04/04/23 1 None, Provider, MD PCP - General UNKNOWN PHYSICIAN SPECIALTY 04/03/23 Alexsandra Brunson FNP [address] [place] [address] [address] [place] [address] PCP - General Nurse Practitioner Family 01/06/24 documented as of this encounter
--- OUTSIDE RECORDS SUMMARY | 2024-12-11 13:32 | XMS_ITS | Encounter Summary ---
Author Organization [facility] Address [facility] [place] [address] Care Team Providers Care Retirement Sales Consultant Name Role Phone Mela Valladares MD Primary Care Provider [phone] Mela Valladares MD Primary Care Provider [phone] None, Provider Primary Care Provider Unavaila ble None, Provider Primary Care Provider Unavaila ble Alexsandra Brunson Primary Care Provider [phone] Encounter Details Date Type Department Care Team (Late st Contact Info) Description 01/13/2022 [employer] Message Enc [facility] Family & Internal Medicine [address] [address] [place], [facility] Provider Due for routine follow [...] Rule Out 04/26/2022 04/26/2022 04/26/2022 5:07 PM BOILER MAKER COVID-19 Rule Out 04/26/2022 04/26/2022 04/27/2022 6:42 PM BOILER MAKER Assessment Noted Time PHQ-9 Depression Total Score: 1 11/06/19 22 8:20 AM CDT documented as of this encounter Care Teams Retirement Sales Consultant Relationship Specialty [place] [address] [place] [address] PCP - General FAMILY PRACTICE 02/05/21 03/28/23 [place] [address] [place] [address] PCP - General FAMILY PRACTICE 03/30/23 04/02/23 None, Provider, PCP - General UNKNOWN PHYSICIAN SPECIALTY 04/04/23 1 None, Provider, PCP - General UNKNOWN PHYSICIAN SPECIALTY 04/03/23 Alexsandra Brunson FNP [facility] [place] [address] [place] [address] PCP - General Nurse Practitioner Family 01/06/24 documented as of this encounter
[2024-12-11 13:38] LABS: Hematocrit 44.7 % (37.0-47.0); Hemoglobin 15.4 g/dL (12.0-15.0); Mean Corpuscular HGB Conc 34.5 g/dl (32-36); Mean Corpuscular Hemoglobin 32.4 pg (26-34); Mean Corpuscular Volume 94.1 fl (80-100); Platelet Count Result 284 k/mm3 (150-375); Red Blood Count 4.75 M/mm3 (4.2-5.4); White Blood Count 6.4 K/mm3 (4.5-10.0)
[2024-12-11 13:42] LABS: Blood Urea Nitrogen 9 mg/dL (8-26); Carbon Dioxide 23 mmol/L (22-30); Chloride 102 mmol/L (98-109); Estimated Glomerular Filt Rate > 60; Glucose 190 mg/dL (70-105); Ionized Calcium (POC) 1.20 mmol/L (1.11-1.31); Potassium 4.1 mmol/L (3.5-4.9); Sodium 137 mmol/L (138-146)
== END 2024-12-11 13:22 | disposition home or self-care (01) ==
LOC: ANHLAB 13:23
PROVIDERS: PCP Nurse Practitioner Family; Visit Provider Internal Medicine Hematology & Oncology
DX: D69.59 Other secondary thrombocytopenia (principal)
CPT/HCPCS: 36415; 80047; 85027